=== PATIENT | male | born 1935 | race Caucasian/White ===

== ENCOUNTER 2020-08-28 10:37 | Emergency (ER) | payer MEDICARE, SELFPAY ==
[2020-08-28 10:56] VITALS: BP 128/92; PULSE 59; RESP 18; TEMP 35.8; O2SAT 99
[2020-08-28 11:20] LABS: Basophils Absolute Auto 0.1 K/mm3 (0.0-0.1); Basophils Percent Auto 0.8 % (0.2-1.2); Eosinophils Absolute Auto 0.1 K/mm3 (0-0.3); Eosinophils Percent Auto 1.3 % (0-4.4); Hematocrit 42.8 % (42.0-52.0); Hemoglobin 13.8 g/dL (14.0-18.0); Immature Granulocyte Absolute 0.02 K/mm3 (0.00-0.031); Immature Granulocyte Percent A 0.3 % (0-0.5); Lymphocytes Absolute Auto 0.86 K/mm3 (0.9-3.2); Lymphocytes Percent Auto 11.5 % (18.3-44.2); Mean Corpuscular HGB Conc 32.2 g/dl (32-36); Mean Corpuscular Hemoglobin 30.7 pg (26-34); Mean Corpuscular Volume 95.3 fl (80-100); Mean Platelet Volume 9.3 fl (7.4-10.4); Monocytes Absolute Auto 0.7 K/mm3 (0.1-0.6); Monocytes Percent Auto 8.9 % (2.6-8.5); Neutrophils Absolute Auto 5.8 K/mm3 (1.3-6.7); Neutrophils Percent Auto 77.2 % (45.5-73.1); Platelet Count Result 168 k/mm3 (150-375); Red Blood Count 4.49 M/mm3 (4.6-6.20); Red Cell Distribution Width 14.5 % (11.5-14.5); White Blood Count 7.5 K/mm3 (4.5-10.0)
[2020-08-28] MEDS: SODIUM CHLORIDE 0.9% IV 500 ML 999 ML IV CONT (11:28)
[2020-08-28 11:32] LABS: Lactic Acid Reflex 1.4 mmol/L (0.7-2.1)
[2020-08-28 11:34] LABS: Anion Gap 7 mmol/L (8-16); Blood Urea Nitrogen 19 mg/dL (9-20); CRP 2.5 mg/dL (<1.0); Carbon Dioxide 29 mmol/L (22-30); Chloride 105 mmol/L (98-107); Estimated CRCL calculation 63 ml/min; Estimated Glomerular Filt Rate > 60; Glucose 95 mg/dL (75-110); Potassium 3.9 mmol/L (3.4-5.0); Sodium 141 mmol/L (137-145)
--- NOTE | 2020-08-28 11:57 | ED.GENADULT ---
HPI - General Adult General Chief complaint: Wound/Laceration Stated complaint: urologist sent Time Seen by Provider: 08/28/20 10:44 Source: patient, old records reviewed and other (Discussed with urology) Mode of arrival: ambulatory Limitations: no limitations History of Present Illness HPI narrative: Patient is an 85-year-old male sent over from urology for evaluation of wound to the right thigh patient was seen by urology had Dougherty catheter placed due to dysuria followed up 1 month later and on his visit was found to have ulceration at the side of the leg strap for the back patient notes that he had left the tampon the entire time did not realize he had an ulceration noted discomfort initially but notes minimal discomfort at this time. Patient on arrival presents with circumferential ulceration of the right thigh with erythematous margins at some locations, drainage serosanguineous, no surrounding cellulitic changes or lymphangitic streaking Related Data Home Medications Medication Instructions Recorded Confirmed Metamucil 09/11/19 albuterol sulfate INHALATION 09/11/19 amlodipine 09/11/19 apixaban [Eliquis] mg 09/11/19 aspirin 09/11/19 atorvastatin 09/11/19 chlorthalidone 09/11/19 clonazepam 09/11/19 clonidine HCl 09/11/19 finasteride mg 09/11/19 fluticasone propionate INTRANASAL 09/11/19 furosemide 09/11/19 leflunomide mg 09/11/19 quinapril mg 09/11/19 tamsulosin mg PO 09/11/19 fluticasone furoate-vilanterol INHALATION 09/12/19 [Breo Ellipta] glucosamine sulfate [Glucosamine] 500 mg PO BID 09/12/19 Allergies Allergy/AdvReac Type Severity Reaction Status Date / Time codeine Allergy Unknown Verified 09/12/19 13:57 Review of Systems Review of Systems: All systems reviewed & are unremarkable except as noted in HPI and below PMFSH Past Medical History Medical History (Updated 08/28/20 @ 12:59 by Duncan Carter PA-C) Bronchitis Cancer Lung, prostate, bone remission Degenerative disc disease L4 and L5 Heart palpitations Hypercholesterolemia Hypertension Lung cancer Macular degeneration Musculoskeletal disorder RA, back surgeries in the lumbar area Prostate cancer 1998, took radiation treatment 2002 Rheumatoid arthritis Seasonal allergies Sepsis Sleep apnea Uses CPAP Surgical History Surgical History History of surgery on arm upper lt arm, due to lung CA moving into the bone Hx of spinal surgery Social History Social History Smoking status: Never smoker Alcohol intake: current Gender identity (if verbalized by the patient): Male Exam Narrative: Exam Narrative: GENERAL: Well-appearing, well-nourished, and in no acute distress. HEAD: Normocephalic, atraumatic. EYES: PERRLA and EOMI. ENT: Nares clear, no rhinorrhea or epistaxis. Mucous membranes moist. CHEST: Clear to auscultation. No respiratory distress. No wheezes rales or rhonchi HEART: Regular rate and rhythm. No murmur heard. Normal peripheral pulses. EXTREMITIES: Normal range of motion. No edema. SKIN: Warm, dry, no rash. Patient with superficial ulceration of the right thigh that is near circumferential with some clearing areas with erythematous margins serosanguineous drainage no lymphangitic streaking no bleeding NEURO: No focal deficits. Alert and oriented x3. PSYCH: Normal mood and affect. Const: General: no acute distress Course Course Emergency Course: Patient was evaluated by wound care nurse and myself in the emergency department evaluated patient was given wound care recommendations wound was dressed in the emergency department patient will be discharged home with follow-up with primary care primary care was contacted in regards to his patient. Patient advised to follow with primary care to facilitate wound care follow-up Vital Signs Vital signs: Vital Signs Temperatu
[2020-08-28 13:06] LABS: Add Urine Microscopic? YES; Appearance Urine Clear (Clear); Bacteria Urine Trace /hpf; Bilirubin Urine Negative (Negative); Blood Urine 1+ (Negative); Color Urine Straw (Yellow); Glucose Urine UA Negative (Negative); Ketones Urine Negative (Negative); Leukocyte Esterase Ur Trace LEU/UL (Negative); Nitrate Urine Negative (Negative); Protein Urine Negative (Negative); Specific Grav Ur 1.011 (1.001-1.035); Squamous Epithelial Cell Urine Rare /hpf (Few); Urobilinogen Urine Negative mg/dL (<2.0)
[2020-08-28 13:07] VITALS: BP 130/78; PULSE 78; RESP 20; O2SAT 99
[2020-08-28 14:25] VITALS: BP 130/70; PULSE 72; RESP 18; O2SAT 99
== END 2020-08-28 14:28 | disposition home or self-care (01) ==
PROVIDERS: Emergency Medicine Emergency Medical Services; Emergency Provider Family Medicine
DX: L97.119 Non-pressure chronic ulcer of right thigh with unspecified severity (principal); L03.115 Cellulitis of right lower limb; Z79.82 Long term (current) use of aspirin; Z79.01 Long term (current) use of anticoagulants; M51.36 Other intervertebral disc degeneration, lumbar region; E78.00 Pure hypercholesterolemia, unspecified; I10 Essential (primary) hypertension; Z85.118 Personal history of other malignant neoplasm of bronchus and lung; H35.30 Unspecified macular degeneration; Z85.46 Personal history of malignant neoplasm of prostate; M06.9 Rheumatoid arthritis, unspecified; G47.30 Sleep apnea, unspecified
CPT/HCPCS: 36415; 80048; 81001; 83605; 85025; 86140; 87070; 87075; 87076; 87077; 87186; 87205; 96365; 99284; J0690; J7040

== ENCOUNTER 2021-02-13 14:45 | Emergency (ER) | payer MEDICARE, SELFPAY ==
[2021-02-13] VITALS (18 sets, daily range): BP systolic 139–193; BP diastolic 92–115; PULSE 65–104; RESP 13–22; TEMP 36.8; O2SAT 96–99
--- NOTE | 2021-02-13 15:05 | ECG_ITS ---
Measurements Intervals [place] Rate: 83 P: [place]: 0 QRS: -33 QRSD: 88 T: 28 QT: 379 QTc: 447 Interpretive Statements ATRIAL FIBRILLATION LEFT AXIS DEVIATION BORDERLINE R WAVE PROGRESSION, ANTERIOR LEADS BORDERLINE T WAVE ABNORMALITY- INFERIOR LEADS BASELINE ARTIFACT- V3 ABNORMAL ECG Electronically Signed On 02-13-2021 19:16:02 CDT by Sergio Steel D.O.
--- NOTE | 2021-02-13 15:57 | PC.NURSE ---
after pt initially refusing blood draw twice agreeable to lab draw. pt impatient. wanting to leave.
[2021-02-13 16:01] LABS: Basophils Absolute Auto 0.1 K/mm3 (0.0-0.1); Basophils Percent Auto 0.9 % (0.2-1.2); Eosinophils Absolute Auto 0.1 K/mm3 (0-0.3); Eosinophils Percent Auto 1.3 % (0-4.4); Hematocrit 44.9 % (42.0-52.0); Hemoglobin 14.8 g/dL (14.0-18.0); Immature Granulocyte Absolute 0.02 K/mm3 (0.00-0.031); Immature Granulocyte Percent A 0.4 % (0-0.5); Lymphocytes Absolute Auto 0.94 K/mm3 (0.9-3.2); Lymphocytes Percent Auto 17.6 % (18.3-44.2); Mean Corpuscular Hemoglobin 30.8 pg (26-34); Mean Corpuscular Volume 93.5 fl (80-100); Mean Platelet Volume 9.5 fl (7.4-10.4); Monocytes Absolute Auto 0.5 K/mm3 (0.1-0.6); Monocytes Percent Auto 8.6 % (2.6-8.5); Neutrophils Absolute Auto 3.8 K/mm3 (1.3-6.7); Neutrophils Percent Auto 71.2 % (45.5-73.1); Platelet Count Result 141 k/mm3 (150-375); Red Cell Distribution Width 14.6 % (11.5-14.5); White Blood Count 5.3 K/mm3 (4.5-10.0)
--- NOTE | 2021-02-13 16:04 | PC.NURSE ---
called Bart alcantar, asked to add on Trop I Baseline [id number]
[2021-02-13 16:13] LABS: Alanine Aminotransferase 25 U/L (4-50); Albumin Level 3.7 g/dL (3.5-5.1); Alkaline Phosphatase 96 U/L (38-126); Anion Gap 6 mmol/L (8-16); Aspartate Amino Transferase 29 U/L (17-59); Bilirubin,Total 1.2 mg/dL (0.2-1.3); Blood Urea Nitrogen 15 mg/dL (9-20); Calcium 8.9 mg/dL (8.4-10.2); Carbon Dioxide 27 mmol/L (22-30); Chloride 106 mmol/L (98-107); Estimated CRCL calculation 52 ml/min; Estimated Glomerular Filt Rate > 60; Glucose 109 mg/dL (75-110); Potassium 3.6 mmol/L (3.4-5.0); Sodium 139 mmol/L (137-145)
[2021-02-13 16:18] LABS: INR 1.1; Prothrombin Time 15.2 Seconds (11.1-14.7)
--- NOTE | 2021-02-13 17:03 | PC.NURSE ---
Called Bart alcantar, asked if Trop I Baseline was going to be ran. He said he would take care of it [id number]
[2021-02-13 17:24] LABS: Troponin I < 0.012 ng/mL (0.000-0.034)
--- NOTE | 2021-02-13 17:32 | ED.SYNCOPE ---
HPI - Syncope General Chief Complaint: Syncope Stated Complaint: NEAR SYNCOPE Time Seen by Provider: 02/13/21 14:52 Source: patient Mode of arrival: EMS Limitations: no limitations History of Present Illness HPI narrative: 85-year-old with a history of RA, A. fib here with complaints of sudden onset of weakness and near passing out spell. Patient states that he was doing some paperwork and all of a sudden felt extremely weak and was about to pass out. He states he called 911 and was later brought here. He denied any chest pain or palpitations. Complains of multiple joint pains which has been ongoing for a while. MD complaint: felt faint -: minutes(s) (2 to 3 mins) Witnessed: No Context: at rest Injuries sustained associated with event: none Current symptoms: none Related Data Home Medications Medication Instructions Recorded Confirmed Metamucil 09/11/19 12/08/20 amlodipine 09/11/19 12/08/20 aspirin 09/11/19 12/08/20 atorvastatin 09/11/19 12/08/20 chlorthalidone 09/11/19 12/08/20 clonazepam 09/11/19 12/08/20 clonidine HCl 09/11/19 12/08/20 finasteride mg 09/11/19 12/08/20 fluticasone propionate INTRANASAL 09/11/19 12/08/20 furosemide 09/11/19 12/08/20 leflunomide mg 09/11/19 12/08/20 quinapril mg 09/11/19 12/08/20 fluticasone furoate-vilanterol INHALATION 09/12/19 12/08/20 [Breo Ellipta] glucosamine sulfate [Glucosamine] 500 mg PO BID 09/12/19 12/08/20 apixaban 5 mg tablet 5 mg PO BID 11/27/20 12/08/20 potassium 99 mg tablet mg PO 11/27/20 12/08/20 Allergies Allergy/AdvReac Type Severity Reaction Status Date / Time codeine Allergy Unknown Verified 12/08/20 09:25 Review of Systems Review of Systems: All systems reviewed & are unremarkable except as noted in HPI and below Constitutional: Constitutional: Reports no additional constitutional complaints Eyes: Eyes: Reports no additional eye complaints Cardiovascular: Cardiovascular: Reports no additional cardiovascular complaints Respiratory: Respiratory: Reports no additional respiratory complaints Gastrointestinal: Gastrointestinal: Reports no additional gastrointestinal complaints Musculoskeletal: Musculoskeletal: Reports no additional musculoskeletal complaints Neurologic: Reports system reviewed and no additional complaints, except as documented PMFSH Past Medical History Medical History Bronchitis Cancer Lung, prostate, bone remission Degenerative disc disease L4 and L5 Heart palpitations Hypercholesterolemia Hypertension Lung cancer Macular degeneration Musculoskeletal disorder RA, back surgeries in the lumbar area Prostate cancer 1998, took radiation treatment 2002 Rheumatoid arthritis Seasonal allergies Sepsis Sleep apnea Uses CPAP Surgical History Surgical History History of surgery on arm upper lt arm, due to lung CA moving into the bone Hx of spinal surgery Social History Social History Smoking status: Never smoker Alcohol intake: current Gender identity (if verbalized by the patient): Male Exam Narrative: Exam Narrative: GENERAL: Well-appearing, well-nourished, and in no acute distress. HEAD: Normocephalic, atraumatic. EYES: PERRLA and EOMI. ENT: Nares clear, no rhinorrhea or epistaxis. . NECK: Supple. CHEST: Clear to auscultation. No respiratory distress. HEART: Regular rate and rhythm. No murmur heard. Normal peripheral pulses. ABDOMEN: Soft, nontender, nondistended, normal active bowel sounds. EXTREMITIES: Normal range of motion has osteoarthritic changes in all the joints SKIN: Warm, dry, no rash. NEURO: No focal deficits. Alert and oriented x3. PSYCH: Normal mood and affect. Course Course Emergency Course: Patient was very restless in the ER he wanted to go home right away. However convinced him that we have to evaluate for his hear
== END 2021-02-13 17:31 | disposition home or self-care (01) ==
PROVIDERS: Emergency Provider Family Medicine; PCP Internal Medicine
DX: R55 Syncope and collapse (principal); R53.1 Weakness; I48.91 Unspecified atrial fibrillation; Z85.118 Personal history of other malignant neoplasm of bronchus and lung; E78.5 Hyperlipidemia, unspecified; I10 Essential (primary) hypertension; G47.30 Sleep apnea, unspecified
CPT/HCPCS: 36415; 80053; 84484; 85025; 85610; 93005; 99284

== ENCOUNTER 2021-04-05 10:40 | Emergency (ER) | payer MEDICARE, SELFPAY ==
--- NOTE | 2021-04-05 10:45 | ECG_ITS ---
Measurements Intervals [place] Rate: 84 P: [place]: 0 QRS: -23 QRSD: 90 T: 33 QT: 387 QTc: 459 Interpretive Statements ATRIAL FIBRILLATION VENTRICULAR PREMATURE COMPLEXES BASELINE ARTIFACT- I, II, AVR, AVL, AVF ABNORMAL ECG Electronically Signed On 04-05-2021 13:25:15 CDT by Sergio Steel D.O.
[2021-04-05 10:46] VITALS: BP 126/78; PULSE 112; RESP 16; TEMP 36.5; O2SAT 96
[2021-04-05 11:11] LABS: Basophils Absolute Auto 0.1 K/mm3 (0.0-0.1); Basophils Percent Auto 1.2 % (0.2-1.2); Eosinophils Absolute Auto 0.1 K/mm3 (0-0.3); Eosinophils Percent Auto 1.3 % (0-4.4); Hematocrit 44.9 % (42.0-52.0); Hemoglobin 14.4 g/dL (14.0-18.0); Immature Granulocyte Absolute 0.03 K/mm3 (0.00-0.031); Immature Granulocyte Percent A 0.4 % (0-0.5); Lymphocytes Absolute Auto 0.87 K/mm3 (0.9-3.2); Lymphocytes Percent Auto 12.7 % (18.3-44.2); Mean Corpuscular HGB Conc 32.1 g/dl (32-36); Mean Corpuscular Hemoglobin 31.4 pg (26-34); Mean Corpuscular Volume 97.8 fl (80-100); Mean Platelet Volume 9.1 fl (7.4-10.4); Monocytes Absolute Auto 0.5 K/mm3 (0.1-0.6); Monocytes Percent Auto 7.4 % (2.6-8.5); Neutrophils Absolute Auto 5.3 K/mm3 (1.3-6.7); Platelet Count Result 168 k/mm3 (150-375); Red Blood Count 4.59 M/mm3 (4.6-6.20); Red Cell Distribution Width 15.4 % (11.5-14.5); White Blood Count 6.9 K/mm3 (4.5-10.0)
[2021-04-05 11:21] LABS: Anion Gap 8 mmol/L (8-16); Blood Urea Nitrogen 18 mg/dL (9-20); Calcium 9.1 mg/dL (8.4-10.2); Carbon Dioxide 26 mmol/L (22-30); Chloride 107 mmol/L (98-107); Estimated CRCL calculation 49 ml/min; Estimated Glomerular Filt Rate > 60; Glucose 90 mg/dL (65-110); Potassium 4.1 mmol/L (3.4-5.0); Sodium 141 mmol/L (137-145)
[2021-04-05 11:32] VITALS: BP 131/83; PULSE 85
[2021-04-05 11:33] VITALS: BP 136/106; PULSE 94
[2021-04-05 11:34] VITALS: BP 149/114; PULSE 110
[2021-04-05 11:51] LABS: Add Urine Microscopic? YES; Appearance Urine Clear (Clear); Bacteria Urine Trace /hpf; Bilirubin Urine Negative (Negative); Blood Urine 3+ (Negative); Color Urine Yellow (Yellow); Glucose Urine UA Negative (Negative); Ketones Urine Negative (Negative); Leukocyte Esterase Ur Trace LEU/UL (Negative); Mucus Urine Rare /lpf; Nitrate Urine Negative (Negative); Protein Urine Negative (Negative); RBC Urine >75 /hpf (0-2); Specific Grav Ur 1.014 (1.001-1.035); Urobilinogen Urine Negative mg/dL (<2.0)
[2021-04-05 12:51] LABS: NT Pro B Type Natriuretic Pept 600 pg/mL (5-100); Troponin I < 0.012 ng/mL (0.000-0.034)
--- NOTE | 2021-04-05 13:17 | PC.NURSE ---
Pt refused xray a second time. made aware.
--- NOTE | 2021-04-05 13:45 | ED.DIZZY ---
HPI - Dizziness General Chief Complaint: Dizziness Stated Complaint: dizziness Time Seen by Provider: 04/05/21 12:14 Source: patient Mode of arrival: ambulatory Limitations: no limitations History of Present Illness HPI Narrative: 85-year-old male Presents to the ED complaining of having felt weak and dizzy earlier this morning He originally signed paperwork to leave without being seen which delayed his interview but then changed his mind He has A. fib and an indwelling Dougherty catheter and has been taking a sulfa for 2 days for a UTI He does not have fever chills or a cough He does not think that he had either a fast or slow heart rate There was no focal weakness or gait or speech disturbance Almost exactly the same thing with a unremarkable evaluation about a month and a half ago according to the patient, and he has seen his PCPs since that time as well Related Data Home Medications Medication Instructions Recorded Confirmed Metamucil 09/11/19 03/12/21 aspirin 09/11/19 03/12/21 atorvastatin 09/11/19 03/12/21 clonazepam 09/11/19 03/12/21 clonidine HCl 09/11/19 03/12/21 finasteride mg 09/11/19 03/12/21 fluticasone propionate INTRANASAL 09/11/19 03/12/21 furosemide 09/11/19 03/12/21 quinapril mg 09/11/19 03/12/21 glucosamine sulfate [Glucosamine] 500 mg PO BID 09/12/19 03/12/21 apixaban 5 mg tablet 5 mg PO BID 11/27/20 03/12/21 potassium 99 mg tablet mg PO 11/27/20 03/12/21 acetaminophen 500 mg tablet 1,000 mg PO BID PRN tablet 02/22/21 03/12/21 amlodipine 10 mg tablet 10 mg PO DAILY tablet 02/22/21 03/12/21 vitamin B complex 1 tablet PO DAILY 02/22/21 03/12/21 Allergies Allergy/AdvReac Type Severity Reaction Status Date / Time codeine Allergy Unknown Verified 03/30/21 08:59 Review of Systems Review of Systems: All systems reviewed & are unremarkable except as noted in HPI and below Constitutional: Constitutional: Reports no additional constitutional complaints, Denies chills, Reports fatigue, Denies fever(s), Denies headache(s) and Reports weakness Eyes: Eyes: Reports no additional eye complaints and Denies change in vision ENT: Reports dizziness, Denies headache(s) and Denies sore throat Cardiovascular: Cardiovascular: Denies chest pain, Denies rapid heart rate, Denies dyspnea and Denies slow heart rate Respiratory: Respiratory: Denies cough and Denies dyspnea Gastrointestinal: Gastrointestinal: Denies abdominal pain, Denies diarrhea, Denies nausea and Denies vomiting Genitourinary: Genitourinary: Denies dysuria and Denies urinary frequency Musculoskeletal: Musculoskeletal: Denies deformity, Reports arthralgias, Reports joint swelling and Denies numbness Integumentary/Breasts: Skin/Breast: Denies rash and Denies wounds Neurologic: Reports dizziness, Denies headache(s), Denies focal weakness and Denies numbness Psychiatric: Psychiatric: Reports no additional psychiatric complaints Endocrine: Endocrine: Reports no additional endocrine complaints Hematologic/Lymphatic: Hematologic/Lymphatic: Reports no additional hematologic/lymphatic complaints Allergic/Immunologic: Allergic/Immunologic: Reports no additional allergic/immunologic complaints PMFSH Past Medical History Medical History A-fib Bronchitis Cancer Lung, prostate, bone remission CHF (congestive heart failure) Degenerative disc disease L4 and L5 Heart palpitations Hypercholesterolemia Hypertension Lung cancer Macular degeneration Musculoskeletal disorder RA, back surgeries in the lumbar area Prostate cancer 1998, took radiation treatment 2002 Rheumatoid arthritis Seasonal allergies Sepsis Sleep apnea Uses CPAP Surgical History Surgical History History of surgery on arm upper lt arm, due to lung CA moving into the bone Hx of spinal surgery Family History Family History (Reviewed 03/30/21 @ 09:26 by Hussain
== END 2021-04-05 13:55 | disposition home or self-care (01) ==
PROVIDERS: Emergency Medicine; Emergency Provider Emergency Medicine; PCP Internal Medicine
DX: R42 Dizziness and giddiness (principal); M06.9 Rheumatoid arthritis, unspecified; I48.91 Unspecified atrial fibrillation; I50.9 Heart failure, unspecified; E78.00 Pure hypercholesterolemia, unspecified; H35.30 Unspecified macular degeneration; G47.30 Sleep apnea, unspecified; I49.3 Ventricular premature depolarization; Z79.01 Long term (current) use of anticoagulants; Z92.3 Personal history of irradiation; Z85.118 Personal history of other malignant neoplasm of bronchus and lung; Z85.46 Personal history of malignant neoplasm of prostate; Z85.830 Personal history of malignant neoplasm of bone; Z79.82 Long term (current) use of aspirin
CPT/HCPCS: 36415; 80048; 81001; 83880; 84484; 85025; 93005; 99284

== ENCOUNTER 2021-05-11 14:05 | Emergency (ER) | payer MEDICARE, SELFPAY ==
[2021-05-11 14:07] VITALS: BP 119/64; PULSE 54; RESP 16; TEMP 36.6; O2SAT 96
[2021-05-11 14:36] LABS: Add Urine Microscopic? YES; Appearance Urine Cloudy (Clear); Bacteria Urine Trace /hpf; Bilirubin Urine Negative (Negative); Blood Urine 3+ (Negative); Color Urine Yellow (Yellow); Glucose Urine UA Negative (Negative); Ketones Urine Negative (Negative); Leukocyte Esterase Ur 3+ LEU/UL (Negative); Mucus Urine Rare /lpf; Nitrate Urine Negative (Negative); Protein Urine 1+ mg/dL (Negative); RBC Urine >75 /hpf (0-2); Specific Grav Ur 1.012 (1.001-1.035); Urobilinogen Urine Negative mg/dL (<2.0); WBC Urine >75 /hpf
--- NOTE | 2021-05-11 15:01 | ED.MALEGU ---
HPI - Male Genitourinary General Chief complaint: Urogenital-Male Stated complaint: blood in catheter Time Seen by Provider: 05/11/21 14:49 Source: patient History of Present Illness HPI Narrative: 85 years old white male, lives alone, came by ambulance complaining of blood in the urine and needs to change his catheter. Which is supposed to be changed once a month. Patient denies any fever, chills, nausea, vomiting, headache, abdominal pain. History of atrial fibrillation on Eliquis. Related Data Home Medications Medication Instructions Recorded Confirmed Metamucil 09/11/19 03/12/21 aspirin 09/11/19 03/12/21 atorvastatin 09/11/19 03/12/21 clonazepam 09/11/19 03/12/21 clonidine HCl 09/11/19 03/12/21 finasteride mg 09/11/19 03/12/21 fluticasone propionate INTRANASAL 09/11/19 03/12/21 furosemide 09/11/19 03/12/21 quinapril mg 09/11/19 03/12/21 glucosamine sulfate [Glucosamine] 500 mg PO BID 09/12/19 03/12/21 apixaban 5 mg tablet 5 mg PO BID 11/27/20 03/12/21 potassium 99 mg tablet mg PO 11/27/20 03/12/21 acetaminophen 500 mg tablet 1,000 mg PO BID PRN tablet 02/22/21 03/12/21 amlodipine 10 mg tablet 10 mg PO DAILY tablet 02/22/21 03/12/21 vitamin B complex 1 tablet PO DAILY 02/22/21 03/12/21 Allergies Allergy/AdvReac Type Severity Reaction Status Date / Time codeine Allergy Unknown Verified 05/11/21 14:21 Review of Systems Review of Systems: CONSTITUTIONAL: Denies fever, chills, or sweats. EYES: Denies visual changes, redness, or discharge. ENT: Denies rhinorrhea, congestion, sore throat, or otalgia. CARDIOVASCULAR: Denies chest pain, palpitations, or edema. RESPIRATORY: Denies cough or dyspnea. GASTROINTESTINAL: Denies abdominal pain, nausea, vomiting, or diarrhea. GENITOURINARY: Denies dysuria or hematuria. SKIN: Denies rash or itching. MUSCULOSKELETAL: Denies back pain, joint pain, or myalgia. NEUROLOGIC: Denies headache, numbness, or weakness. PSYCHIATRIC: Denies anxiety or depression. [facility] Past Medical History Medical History A-fib Bronchitis Cancer Lung, prostate, bone remission CHF (congestive heart failure) Degenerative disc disease L4 and L5 Heart palpitations Hypercholesterolemia Hypertension Lung cancer Macular degeneration Musculoskeletal disorder RA, back surgeries in the lumbar area Prostate cancer 1998, took radiation treatment 2002 Rheumatoid arthritis (~1999) Seasonal allergies Sepsis Sleep apnea Uses CPAP Surgical History Surgical History History of surgery on arm upper lt arm, due to lung CA moving into the bone Hx of spinal surgery Family History Family History Father Heart problem Mother Cancer Social History Social History Smoking status: Never smoker Alcohol intake: current Alcohol use details: Drinks a little ETOH Gender identity (if verbalized by the patient): Male Exam Narrative: General appearance: Well-developed, well-nourished Skin: Normal color Chest and respiratory: Airway patent, no respiratory distress, no accessory muscle use Heart: Regular rate/rhythm Abdomen: Soft, nontender, no organomegaly, quiet bowel sounds Neurologic: Alert and oriented ?3, Course Course Emergency Course: Stable Reevaluation(s) Reevaluation #1: Patient declined to be hospitalized and would like to go home. Patient is planning to stop Plaquenil in case of having a prescription of Cipro. Patient is telling me that Plaquenil does not work and will be okay to stop. D
[2021-05-11 15:41] LABS: Basophils Absolute Auto 0.1 K/mm3 (0.0-0.1); Basophils Percent Auto 0.9 % (0.2-1.2); Eosinophils Absolute Auto 0.1 K/mm3 (0-0.3); Eosinophils Percent Auto 1.4 % (0-4.4); Hematocrit 40.4 % (42.0-52.0); Hemoglobin 13.2 g/dL (14.0-18.0); Immature Granulocyte Absolute 0.04 K/mm3 (0.00-0.031); Immature Granulocyte Percent A 0.5 % (0-0.5); Lymphocytes Absolute Auto 0.99 K/mm3 (0.9-3.2); Lymphocytes Percent Auto 12.7 % (18.3-44.2); Mean Corpuscular HGB Conc 32.7 g/dl (32-36); Mean Corpuscular Hemoglobin 32.4 pg (26-34); Mean Platelet Volume 9.6 fl (7.4-10.4); Monocytes Absolute Auto 0.7 K/mm3 (0.1-0.6); Monocytes Percent Auto 8.5 % (2.6-8.5); Neutrophils Absolute Auto 5.9 K/mm3 (1.3-6.7); Platelet Count Result 155 k/mm3 (150-375); Red Blood Count 4.08 M/mm3 (4.6-6.20); Red Cell Distribution Width 14.8 % (11.5-14.5); White Blood Count 7.8 K/mm3 (4.5-10.0)
[2021-05-11 15:52] LABS: Anion Gap 6 mmol/L (8-16); Blood Urea Nitrogen 26 mg/dL (9-20); Calcium 8.8 mg/dL (8.4-10.2); Carbon Dioxide 28 mmol/L (22-30); Chloride 102 mmol/L (98-107); Estimated CRCL calculation 56 ml/min; Estimated Glomerular Filt Rate > 60; Glucose 105 mg/dL (65-110); Potassium 3.5 mmol/L (3.4-5.0); Sodium 136 mmol/L (137-145)
--- NOTE | 2021-05-11 18:00 | PC.NURSE ---
urinary cath plug to end of robertson per pt. pt continues to refuse use of leg bag.
[2021-05-11 18:05] VITALS: BP 122/73; PULSE 58; RESP 18; O2SAT 96
== END 2021-05-11 18:05 | disposition home or self-care (01) ==
PROVIDERS: Emergency Medicine; Emergency Provider Emergency Medicine; PCP Internal Medicine
DX: N39.0 Urinary tract infection, site not specified (principal); R31.9 Hematuria, unspecified; I48.91 Unspecified atrial fibrillation; I50.9 Heart failure, unspecified; I11.0 Hypertensive heart disease with heart failure; E78.00 Pure hypercholesterolemia, unspecified; H35.30 Unspecified macular degeneration; M06.9 Rheumatoid arthritis, unspecified; G47.30 Sleep apnea, unspecified; M51.36 Other intervertebral disc degeneration, lumbar region; Z85.46 Personal history of malignant neoplasm of prostate; Z85.118 Personal history of other malignant neoplasm of bronchus and lung; Z85.830 Personal history of malignant neoplasm of bone; Z79.01 Long term (current) use of anticoagulants; Z79.82 Long term (current) use of aspirin
CPT/HCPCS: 36415; 80048; 81001; 85025; 87077; 87086; 87088; 87186; 96365; 99284; J0696

== ENCOUNTER 2021-05-15 11:08 | Emergency (ER) | payer MEDICARE, SELFPAY ==
[2021-05-15] VITALS (8 sets, daily range): BP systolic 102–144; BP diastolic 57–85; PULSE 67–79; RESP 16–19; TEMP 36.8; O2SAT 96–99
--- NOTE | ~2021-05-15 | XR_ITS ---
EXAMINATION: XR lumbar spine 2-3V DATE: 05/15/2021 12:45 INDICATION: Low back pain post recurring falls. TECHNIQUE: Anteroposterior and lateral views of the lumbar spine, and cone-down lateral view of the l umbosacral junction were obtained. COMPARISON: MRI dated 04/23/2006 FINDINGS: No significant change in a mild mid lumbar dextroscoliosis with chronic compression fractures versus degenerative endplate remodeling resulting in mild left-sided vertebral body height loss at both L2 a nd L3. Also without significant interval changes mild grade 1 retrolisthesis L3 on L4, L4 on L5 and L 5 on S1. Multilevel severe disc height loss with Modic type III sclerotic endplate changes from L1-L2 through L5-S1. There is a subtle linear lucency extending across the left inferior corner of the L1 vertebral body suspicious for fracture. No other lesions suspicious for acute fracture identified. Mo derate to severe joint space narrowing seen at the profiled portions of the bilateral hip joints. Mod erate bilateral sacroiliac osteoarthritis. Extensive scattered atherosclerotic calcification along th e abdominal aorta and multiple vessels in the pelvis. IMPRESSION: 1. Linear lucency projecting across the left inferior corner of the L1 vertebral body suspicious for nondisplaced fracture. Would consider CT for more definitive determination 2. Severe lumbar spondylosis. Reviewed, dictated and finalized at location A. IMPRESSION: 1. Linear lucency projecting across the left inferior corner of the L1 vertebra l body suspicious for nondisplaced fracture. Would consider CT for more definit blaine determination 2. Severe lumbar spondylosis.
--- NOTE | ~2021-05-15 | CT_ITS ---
EXAMINATION: CT brain wo con, CT cervical spine wo con EXAM DATE: 05/15/2021 11:46 INDICATION: Fall, head injury. TECHNIQUE: Spiral CT of the head was performed without contrast. Axial, coronal and sagittal images were reviewed. Spiral CT of the cervical spine was performed without contrast. Axial images were rev iewed. Coronal and sagittal reformatted images were also reviewed. The dose-length product (DLP) fo r this examination was 681.00 (accession [id number]), 468.27 (accession [id number]) mGy-cm. The exposure was tailored according to patient size, and iterative reconstruction (ASIR) was used as additional dose reduction technique. Comparison is made to prior examination from 09/12/2019. FINDINGS: HEAD CT: There is no acute intraparenchymal hemorrhage. No evidence of intraparenchymal brain mass l esion. No evidence of acute infarction. There is moderate periventricular and subcortical hypodensit y, nonspecific but probably related to small vessel ischemic disease. There is moderate prominence of the sulci and ventricles related to cerebral atrophy. There is no mass effect or midline shift. There is no obstructive hydrocephalus suspected. There are no extra-axial collections. There are n o acute calvarial fractures. Patient has had right-sided ocular lens surgery. Soft tissue is unrema rkable. The visualized sinuses and mastoid air cells are well aerated. CERVICAL CT: There is no evidence of acute cervical fracture. The odontoid process is intact. Pre- dens space is normal. Prevertebral soft tissue is normal. There are no soft tissue abnormalities id entified. There is no disc space widening or traumatic vertebral body subluxation suspected. Advanc ed cervical spondylosis. A detailed level by level evaluation of spondylosis can be added as addendu m if requested. IMPRESSION: 1. No acute intracranial findings or cervical fracture. 2. Moderate intracranial age related findings. 3. Advanced cervical spondylosis. Reviewed, dictated and finalized at location B. IMPRESSION: 1. No acute intracranial findings or cervical fracture. 2. Moderate intracranial age related findings. 3. Advanced cervical spondylosis.
--- NOTE | ~2021-05-15 | CT_ITS ---
EXAMINATION: CT lumbar spine wo con DATE: 05/15/2021 19:36 INDICATION: Low back pain. TECHNIQUE: Computed tomography (CT) of the lumbar spine was performed without intravenous contrast. A utomated exposure control and iterative reconstruction technique were employed. The dose-length produ ct was 1071.01 mGy-cm. COMPARISON: Lumbar spine radiographs 05/15/2021, MRI 05/15/2021 FINDINGS: There are hemorrhagic cysts in left kidney measuring up to 1.7 cm. There is a 3.0 cm simple cyst in left kidney. There is 21 degrees dextroscoliosis of lumbar spine. There is 3 mm retrolisthes is of L1 on L2, L2 on L3, L3 on L4, and L4 onL5. There is severely decreased disc height from T11-T12 through L5-S1 with chronic height loss of L1-L5 vertebral bodies and endplate remodeling. The follow ing disc levels are specifically discussed: L1-L2: The disc is bulging. There is severe bilateral facet joint osteoarthritis. There is moderate b ilateral neural foraminal stenosis. There is moderate central canal stenosis. L2-L3: The disc is bulging. There is severe bilateral facet joint osteoarthritis. There is moderate b ilateral neural foraminal stenosis. There is mild central canal stenosis. L3-L4: The disc is bulging. There is severe bilateral facet joint osteoarthritis. There is moderate b ilateral neural foraminal stenosis. There is mild central canal stenosis. L4-L5: The disc is bulging. There is severe bilateral facet joint osteoarthritis. There is moderate b ilateral neural foraminal stenosis. There is mild central canal stenosis. L5-S1: The disc is bulging. There is severe bilateral facet joint osteoarthritis. There is moderate b ilateral neural foraminal stenosis. There is mild central canal stenosis. IMPRESSION: 1. No acute fracture. 2. Severe lumbar spondylosis. 3. Lumbar dextroscoliosis. Reviewed, dictated and finalized at location A.
--- NOTE | ~2021-05-15 | XR_ITS ---
EXAMINATION: XR chest 2V DATE: 05/15/2021 11:35 INDICATION: Weakness TECHNIQUE: frontal view of the chest was obtained. COMPARISON: Chest radiograph dated 09/12/[address] dated 05/25/2008 FINDINGS: Volume loss in the right hemithorax with crowding of the ribs and slight rightward shift of the heart and mediastinum. Unchanged airspace opacity at the posterior right midlung zone corresponding to chr onically collapsed right upper lobe as seen on prior CT and likely related to reported history of walker or lung cancer with radiation treatment. Remainder of the lungs are clear. No pulmonary edema, pleura l effusion or pneumothorax. Heart size is normal accounting for AP technique. Atherosclerotic aorta. Mild to moderate degenerative skeletal changes in the spine and at both shoulders. IMPRESSION: 1. Volume loss in the right hemithorax with stable appearance of a chronic opacity in the posterior r ight midlung zone which appears to correspond to chronic right upper lobar collapse likely related to reported history of prior lung cancer and radiation treatment. Reviewed, dictated and finalized at location A. IMPRESSION: 1. Volume loss in the right hemithorax with stable appearance of a chronic opac ity in the posterior right midlung zone which appears to correspond to chronic right upper lobar collapse likely related to reported history of prior lung can cer and radiation treatment.
--- NOTE | 2021-05-15 11:11 | ECG_ITS ---
Measurements Intervals [place] Rate: 73 P: [place]: 0 QRS: 22 QRSD: 90 T: 73 QT: 382 QTc: 421 Interpretive Statements ATRIAL FIBRILLATION BASELINE ARTIFACT- I, II, III, AVR, AVF, V1, V3-V6 ABNORMAL ECG Electronically Signed On 05-15-2021 11:25:27 CDT by Sergio Steel D.O.
--- NOTE | 2021-05-15 11:29 | ED.GENADULT ---
HPI - General Adult General Chief complaint: Weakness Stated complaint: FALL/WEAKNESS Time Seen by Provider: 05/15/21 11:11 Source: patient History of Present Illness HPI narrative: Patient is a 85 y/o male complaining of severe generalized weakness for 3-4 months. There is no known alleviating or exacerbating factor. He states that he fell twice today and could not get up. He pushed the life line button and was brought here to ED. He states that he did not hit his head and he did not lose consciousness. He has no neck pain, chest pain or abdominal pain. He has chronic back pain due to spinal stenosis and it has been present for perhaps 10 years. He had multiple back surgeries in the past. He states that he normally ambulates with a walker, but he his not able to get up after the fall. He lives by himself and he has a helper that helps with his daily activity. Related Data Home Medications Medication Instructions Recorded Confirmed Metamucil 09/11/19 03/12/21 aspirin 09/11/19 03/12/21 atorvastatin 09/11/19 03/12/21 clonazepam 09/11/19 03/12/21 clonidine HCl 09/11/19 03/12/21 finasteride mg 09/11/19 03/12/21 fluticasone propionate INTRANASAL 09/11/19 03/12/21 furosemide 09/11/19 03/12/21 quinapril mg 09/11/19 03/12/21 glucosamine sulfate [Glucosamine] 500 mg PO BID 09/12/19 03/12/21 apixaban 5 mg tablet 5 mg PO BID 11/27/20 03/12/21 potassium 99 mg tablet mg PO 11/27/20 03/12/21 acetaminophen 500 mg tablet 1,000 mg PO BID PRN tablet 02/22/21 03/12/21 amlodipine 10 mg tablet 10 mg PO DAILY tablet 02/22/21 03/12/21 vitamin B complex 1 tablet PO DAILY 02/22/21 03/12/21 Allergies Allergy/AdvReac Type Severity Reaction Status Date / Time codeine Allergy Unknown Verified 05/15/21 11:22 Review of Systems Constitutional: Constitutional: Denies chills, Denies fever(s), Denies headache(s) and Reports weakness Eyes: Eyes: Denies blurry vision ENT: Denies headache(s) and Denies neck pain Cardiovascular: Cardiovascular: Denies chest pain and Denies dyspnea Respiratory: Respiratory: Denies cough and Denies dyspnea Gastrointestinal: Gastrointestinal: Denies abdominal pain, Denies diarrhea, Denies nausea and Denies vomiting Genitourinary: Genitourinary: Denies hematuria and Denies dysuria Musculoskeletal: Musculoskeletal: Reports back pain and Denies neck pain Neurologic: Denies headache(s) and Reports weakness PMFSH Past Medical History Medical History A-fib Bronchitis Cancer Lung, prostate, bone remission CHF (congestive heart failure) Degenerative disc disease L4 and L5 Heart palpitations Hypercholesterolemia Hypertension Lung cancer Macular degeneration Musculoskeletal disorder RA, back surgeries in the lumbar area Prostate cancer 1998, took radiation treatment 2002 Rheumatoid arthritis (~1999) Seasonal allergies Sepsis Sleep apnea Uses CPAP Surgical History Surgical History History of surgery on arm upper lt arm, due to lung CA moving into the bone Hx of spinal surgery Family History Family History Father Heart problem Mother Cancer Social History Social History Smoking status: Never smoker Alcohol intake: current Alcohol use details: Drinks a little ETOH Gender identity (if verbalized by the patient): Male Exam Const: General: no acute distress and well developed Orientation/consciousness: oriented to person, oriented to place, oriented to time and patient oriented x3 HENMT: Head: normocephalic Ears: external ears normal General nose exam: Normal external nose present Eyes: General: appearance normal, both eyes and all related structures Conjunctivae: conjunctivae normal Neck: Neck: normal visual inspection and full ROM Chest: Chest palpation & inspection:
[2021-05-15 11:43] LABS: Basophils Absolute Auto 0.1 K/mm3 (0.0-0.1); Basophils Percent Auto 0.9 % (0.2-1.2); Eosinophils Absolute Auto 0.1 K/mm3 (0-0.3); Eosinophils Percent Auto 0.8 % (0-4.4); Hematocrit 47.3 % (42.0-52.0); Immature Granulocyte Absolute 0.03 K/mm3 (0.00-0.031); Immature Granulocyte Percent A 0.4 % (0-0.5); Lymphocytes Absolute Auto 0.81 K/mm3 (0.9-3.2); Lymphocytes Percent Auto 10.8 % (18.3-44.2); Mean Corpuscular HGB Conc 31.7 g/dl (32-36); Mean Corpuscular Volume 100.9 fl (80-100); Mean Platelet Volume 9.9 fl (7.4-10.4); Monocytes Absolute Auto 0.6 K/mm3 (0.1-0.6); Monocytes Percent Auto 8.3 % (2.6-8.5); Neutrophils Absolute Auto 5.9 K/mm3 (1.3-6.7); Neutrophils Percent Auto 78.8 % (45.5-73.1); Platelet Count Result 162 k/mm3 (150-375); Red Blood Count 4.69 M/mm3 (4.6-6.20); Red Cell Distribution Width 14.8 % (11.5-14.5); White Blood Count 7.5 K/mm3 (4.5-10.0)
[2021-05-15 11:53] LABS: Alanine Aminotransferase 32 U/L (4-50); Albumin Level 3.9 g/dL (3.5-5.1); Alkaline Phosphatase 115 U/L (38-126); Anion Gap 6 mmol/L (8-16); Aspartate Amino Transferase 36 U/L (17-59); Blood Urea Nitrogen 29 mg/dL (9-20); Calcium 9.2 mg/dL (8.4-10.2); Carbon Dioxide 29 mmol/L (22-30); Chloride 102 mmol/L (98-107); Estimated CRCL calculation 61 ml/min; Estimated Glomerular Filt Rate > 60; Glucose 97 mg/dL (65-110); Potassium 3.7 mmol/L (3.4-5.0); Sodium 137 mmol/L (137-145)
[2021-05-15 12:02] LABS: INR 1.1; Partial Thromboplastin Time 31.5 SECONDS (22.3-36.8); Prothrombin Time 13.7 Seconds (11.1-14.7)
[2021-05-15 12:30] LABS: Troponin I < 0.012 ng/mL (0.000-0.034)
--- NOTE | 2021-05-15 12:35 | PCCCNOTE ---
Spoke with pt per his request for help getting to rehab. Pt states he has fallen twice today and was unable to get himself up. Pt requesting to go to [place] for rehab. Explained to pt he would need PT/OT eval so that we can send request to [facility] for authorization. Pt is agreeable. Pt unable to care for himself at home. Called Irene at [facility] and faxed ED MD notes and face sheet to her..
[2021-05-15 13:05] LABS: Add Urine Microscopic? YES; Appearance Urine Clear (Clear); Bilirubin Urine Negative (Negative); Blood Urine Negative (Negative); Color Urine Straw (Yellow); Glucose Urine UA Negative (Negative); Ketones Urine Negative (Negative); Leukocyte Esterase Ur 1+ LEU/UL (Negative); Mucus Urine Rare /lpf; Nitrate Urine Negative (Negative); Protein Urine Negative (Negative); Specific Grav Ur 1.011 (1.001-1.035); Urobilinogen Urine Negative mg/dL (<2.0)
--- NOTE | 2021-05-15 15:03 | PCCCNOTE ---
[facility] waiting PT/OT eval. and [facility] authorization prior to accepting pt. Irene feels if [facility] auth received that they will accept Edu.
--- NOTE | 2021-05-15 15:47 | PCCCNOTE ---
Faxed face sheet, ER note and PT queenieal to [facility]. Requesting authorization for SNF at [place]. Faxed PT eval to [facility].
[2021-05-15 15:57] LABS: Troponin I < 0.012 ng/mL (0.000-0.034)
--- NOTE | 2021-05-15 16:58 | PCCCNOTE ---
Pt reports he has both Pfizer immunizations in January 2021
--- NOTE | 2021-05-15 17:26 | PCCCNOTE ---
Pending Ref# [id number] obtained from [employer]. [facility] to call and let Care Coordination know if auth is approved.
[2021-05-15 17:40] LABS: Troponin I < 0.012 ng/mL (0.000-0.034)
--- NOTE | 2021-05-15 19:10 | PCCCNOTE ---
[facility] auth rec'd for pt to go to [place]. Auth ID: [id number], under Teresita Canada at [facility]. Jinny rowell for 3 days starting on 05/15/2021. NDR 05/17/2021. Notified Irene at [facility] of same.
--- NOTE | 2021-05-15 19:19 | PC.NURSE ---
Rex Ibrahim called to give report at this time, Claudia ELIZABETH. RN has no questions or concerns at this time. Discharge packet for placement prepared for patient.
--- NOTE | 2021-05-15 20:03 | PC.NURSE ---
called [facility] to request transport. ETA 2100 called [facility] to request transport. declined- there is no transfer truck tonight.
--- NOTE | 2021-05-15 22:18 | PC.NURSE ---
[facility] here.
== END 2021-05-15 22:21 ==
PROVIDERS: Emergency Provider Emergency Medicine; PCP Internal Medicine
DX: R53.1 Weakness (principal); G89.29 Other chronic pain; M54.9 Dorsalgia, unspecified; I48.91 Unspecified atrial fibrillation; I50.9 Heart failure, unspecified; E78.00 Pure hypercholesterolemia, unspecified; I11.0 Hypertensive heart disease with heart failure; M06.9 Rheumatoid arthritis, unspecified; G47.30 Sleep apnea, unspecified; Z87.09 Personal history of other diseases of the respiratory system; Z85.46 Personal history of malignant neoplasm of prostate; Z86.19 Personal history of other infectious and parasitic diseases; Z92.3 Personal history of irradiation
CPT/HCPCS: 36415; 70450; 71046; 72100; 72125; 72131; 80053; 81001; 84484; 85025; 85610; 85730; 93005; 97161; 97166; 99284

== ENCOUNTER 2021-08-25 13:54 | Outpatient (NON) | payer MEDICARE, SELFPAY | END 2021-08-25 13:55 | disposition home or self-care (01) | LOC: HOME HLTH 13:57 | PROVIDERS: PCP Internal Medicine; Visit Provider Urology | DX: G89.29 Other chronic pain (principal); M51.36 Other intervertebral disc degeneration, lumbar region; R33.9 Retention of urine, unspecified; Z46.6 Encounter for fitting and adjustment of urinary device; N39.0 Urinary tract infection, site not specified | CPT/HCPCS: 87077; 87086; 87186 ==

== ENCOUNTER 2021-10-04 14:30 | Outpatient (NON) | payer MEDICARE, SELFPAY | END 2021-10-04 14:31 | disposition home or self-care (01) | PROVIDERS: PCP Internal Medicine; Visit Provider Urology | DX: R31.9 Hematuria, unspecified (principal); R33.9 Retention of urine, unspecified; Z46.6 Encounter for fitting and adjustment of urinary device; M51.36 Other intervertebral disc degeneration, lumbar region; G89.29 Other chronic pain | CPT/HCPCS: 87077; 87086; 87186 ==

== ENCOUNTER 2021-11-13 10:41 | Outpatient (NON) | payer MEDICARE, SELFPAY | END 2021-11-13 10:42 | disposition home or self-care (01) | PROVIDERS: PCP Internal Medicine; Visit Provider Nurse Practitioner Adult Health | DX: R82.90 Unspecified abnormal findings in urine (principal) | CPT/HCPCS: 87077; 87086; 87186 ==

== ENCOUNTER 2021-11-30 16:01 | Outpatient (NON) | payer MEDICARE, SELFPAY | END 2021-11-30 16:02 | disposition home or self-care (01) | LOC: HOME HLTH 16:03 | PROVIDERS: PCP Internal Medicine; Visit Provider Urology | DX: M51.36 Other intervertebral disc degeneration, lumbar region (principal); R33.9 Retention of urine, unspecified; Z46.6 Encounter for fitting and adjustment of urinary device | CPT/HCPCS: 87077; 87086; 87186 ==

== ENCOUNTER 2022-01-15 12:01 | Outpatient (NON) | payer MEDICARE, SELFPAY ==
[2022-01-15 12:21] LABS: Appearance Urine Cloudy (Clear); Bilirubin Urine Negative (Negative); Blood Urine 2+ (Negative); Color Urine Yellow (Yellow); Glucose Urine UA Negative (Negative); Ketones Urine Negative (Negative); Leukocyte Esterase Ur 2+ LEU/UL (NEGATIVE); Nitrate Urine Positive (Negative); Protein Urine 1+ mg/dL (Negative); Urobilinogen Urine 0.2 mg/dL (<2.0); pH Urine 5.5 (5.0-9.0)
[2022-01-15 12:25] LABS: Bacteria Urine 3+ /hpf; Calcium Oxalate Crystals Urine Present /hpf; Mucus Urine Few /lpf; RBC Urine 51-75 /hpf (0-2); WBC Clumps Urine Present /HPF; WBC Urine >75 /hpf (0-3)
[2022-01-15 12:46] LABS: Add Urine Microscopic? YES
== END 2022-01-15 12:02 | disposition home or self-care (01) ==
PROVIDERS: PCP Internal Medicine; Visit Provider Urology
DX: N39.0 Urinary tract infection, site not specified (principal); R33.9 Retention of urine, unspecified; M51.36 Other intervertebral disc degeneration, lumbar region; G89.29 Other chronic pain; Z46.6 Encounter for fitting and adjustment of urinary device
CPT/HCPCS: 81001; 87086; 87088

== ENCOUNTER 2022-06-28 07:48 | Inpatient (IN) | payer MEDICARE, SELFPAY ==
[2022-06-28] VITALS (21 sets, daily range): BP systolic 88–113; BP diastolic 58–77; PULSE 64–97; RESP 14–28; TEMP 35.6–36.8; O2SAT 84–100
--- NOTE | ~2022-06-28 | CT_ITS ---
EXAMINATION: CT brain wo con DATE: 06/28/2022 09:00 INDICATION: Weakness. TECHNIQUE: Computed tomography (CT) of the head was performed without intravenous contrast. The dose- length product was 605.33 mGy-cm. Automated exposure control and iterative reconstruction technique w ere employed. COMPARISON: CT dated 05/15/2021 FINDINGS: Generalized atrophy. There are scattered moderate periventricular and subcortical white mat ter changes, most likely related to small vessel ischemic disease (microangiopathy). No ventriculomeg elvia or midline shift. Basilar cisterns are patent. No acute intracranial hemorrhage, infarction, mass or mass effect. There is intracranial atherosclerosis. There is mild mucosal thickening of the ethmo id sinuses. Mastoids are pneumatized. No depressed skull fractures. IMPRESSION: 1. No acute intracranial abnormality. 2: Chronic age-related findings. Reviewed, dictated and finalized at location A.
--- NOTE | ~2022-06-28 | XR_ITS ---
EXAMINATION: XR barium swallow modified DATE: 06/29/2022 14:21 INDICATION: Aspiration. TECHNIQUE: The patient was given barium-containing material of multiple consistencies to swallow by t he speech pathologist while I performed fluoroscopy. Fluoroscopy exposure time was 2.0 minutes. The n umber of fluoroscopy images saved to the PACS was 1. Dose-area product was 1.821 Gy-cm^2. FINDINGS: There is reduced laryngeal elevation, reduced tongue base retraction, and laryngeal penetration. IMPRESSION: 1. Laryngeal penetration. 2. Please refer to the speech therapy report for recommendations. Reviewed, dictated and finalized at location A.
--- NOTE | ~2022-06-28 | XR_ITS ---
EXAMINATION: XR chest 1V portable DATE: 07/01/2022 05:44 INDICATION: Hypoxia. Presumed aspiration pneumonia. TECHNIQUE: frontal view of the chest was obtained. COMPARISON: Chest radiograph and CT studies dated 06/28/2022 and 05/25/2008 FINDINGS: Cardiomegaly. Volume loss in the right hemithorax with V-shaped linear opacity projecting over the right hilum darwin esponding to chronic atelectasis/scarring on prior CT. Mild streaky opacities in the bilateral lower lung zones. Small left pleural effusion. No pneumothorax. Retained oral contrast material in the visu alized transverse colon. Moderate thoracic spondylosis. IMPRESSION: 1. Streaky opacities at the bilateral lung bases, most likely atelectasis although differential inclu meet aspiration or pneumonia. 2. Small left pleural effusion. 3. Cardiomegaly. Reviewed, dictated and finalized at location A. IMPRESSION: 1. Streaky opacities at the bilateral lung bases, most likely atelectasis altho ugh differential includes aspiration or pneumonia. 2. Small left pleural effusion. 3. Cardiomegaly.
--- NOTE | ~2022-06-28 | CT_ITS ---
EXAMINATION: CT abdomen pelvis wo/w con DATE: 06/28/2022 18:13 INDICATION: Hematuria TECHNIQUE: Computed tomography (CT) of the abdomen and pelvis was performed without intravenous contr ast. CT of the abdomen and pelvis was then performed with a total of 130 mL Omnipaque 350 intravenous contrast using a double-bolus technique for simultaneous opacification of the renal parenchyma and r enal collecting system. The dose-length product (DLP) was 2821.70 mGy-cm. Automated exposure control and iterative reconstruction technique were employed. COMPARISON: None FINDINGS: There are small pleural effusions. Cardiomegaly is noted. There is calcified coronary arter y atherosclerosis. A small pericardial effusion is noted. Subepicardial fat deposition in the heart i s consistent with prior myocardial infarction. Punctate calcifications in an otherwise normal spleen likely represent healed granulomatous disease. The liver, pancreas, and adrenal glands are normal. A stone is present in the nondistended gallbladder. There are hemorrhagic cysts of both kidneys. Simple cysts of the kidneys measure up to 4.4 cm on the right. There are nonobstructing stones of the right kidney lower pole measuring up to 3 mm. There is a 3 mm stone of the left kidney. Small stones are n oted in the urinary bladder which is decompressed by Dougherty catheter. There are multiple soft tissue d ensity filling defects in the right ureter. There is calcified atherosclerosis of the aorta and many of the other arteries. No pathologically enlarged abdominal or pelvic lymph nodes are identified. The appendix is normal. No pathologically enlarged abdominal or pelvic lymph nodes are identified. There is no free intraperitoneal gas or evidence of bowel obstruction. There is severe osteoarthritis of t he hips. Severe lumbar spondylosis is noted. IMPRESSION: 1. Small stones in the urinary bladder. 2. Multiple small filling defects in the right ureter which could reflect hematoma versus urothelial lesions. 3. Cardiomegaly with small pleural effusions. 4. Bilateral nephrolithiasis. Reviewed, dictated and finalized at location F. IMPRESSION: 1. Small stones in the urinary bladder. 2. Multiple small filling defects in the right ureter which could reflect hemat rocky versus urothelial lesions. 3. Cardiomegaly with small pleural effusions. 4. Bilateral nephrolithiasis.
--- NOTE | ~2022-06-28 | XR_ITS ---
EXAMINATION: XR abdomen/kub 1V INDICATION: Hematuria TECHNIQUE: Supine views of the abdomen were obtained on 2 radiographs. COMPARISON: CT from today FINDINGS: There are phleboliths of the pelvis. Nephrolithiasis described on today's CT scan is not de finitely identified. There is severe lumbar spondylosis. 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 The bowel gas pattern is normal. IMPRESSION: 1. No radiographic correlate for the patient's symptoms. Reviewed, dictated and finalized at location F.
--- NOTE | ~2022-06-28 | XR_ITS ---
EXAMINATION: XR chest 1V portable DATE: 06/28/2022 08:51 INDICATION: Weakness. TECHNIQUE: A single frontal view of the chest was obtained. COMPARISON: Chest 2 views 05/15/2021, chest CT 05/25/2008 FINDINGS: There is mild atelectasis at left lung base. There are chronic airspace opacities in right perihilar region. No pleural effusion or pneumothorax. Cardiomegaly is noted. IMPRESSION: 1. Mild atelectasis at left lung base. 2. 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 3. Cardiomegaly. Reviewed, dictated and finalized at location A. IMPRESSION: 1. Mild atelectasis at left lung base. 2. Chronic airspace opacities in right perihilar region, consistent with radiat ion fibrosis. 3. Cardiomegaly.
--- NOTE | 2022-06-28 07:55 | ECG_ITS ---
Measurements Intervals [place] Rate: 96 P: ME: 0 QRS: -11 QRSD: 92 T: 37 QT: 340 QTc: 430 Interpretive Statements ATRIAL FIBRILLATION WITH PVCS OCCURRING IN A PATTERN OF BIGEMINY LOW QRS VOLTAGE IN EXTREMITY LEADS [QRS DEFLECTION < 0.5 mV IN LIMB LEADS] ABNORMAL RHYTHM ECG COMPARED TO ECG 05/15/2021 11:20:35 PVCS ARE SEEN Electronically Signed On 06-28-2022 15:36:52 CDT by Amrit Contreras M.D.
--- NOTE | 2022-06-28 08:06 | ED.GENADULT ---
HPI - General Adult General Chief complaint: Weakness Stated complaint: gen weakness and blood in cath Time Seen by Provider: 06/28/22 07:51 History of Present Illness HPI narrative: 86-year-old male with history of paroxysmal atrial fibrillation, CHF, lung cancer and prostate cancer presenting to the emergency department for evaluation of worsening generalized weakness. [facility] the [facility] they were concerned that patient was having increased hematuria along with increased generalized weakness. Patient does complain of some lower abdominal pain. Patient does take Eliquis. Related Data Home Medications Medication Instructions Recorded Confirmed Metamucil 09/11/19 12/20/21 aspirin 81 mg chewable tablet 81 mg PO DAILY 09/11/19 06/28/22 atorvastatin 40 mg tablet 40 mg PO HS 09/11/19 06/28/22 clonidine HCl 0.1 mg tablet 0.1 mg PO BID 09/11/19 06/28/22 finasteride 5 mg tablet mg 09/11/19 12/20/21 fluticasone propionate 50 intranasal 09/11/19 12/20/21 mcg/actuation nasal spray,suspension furosemide 40 mg tablet 09/11/19 12/20/21 quinapril 40 mg tablet mg 09/11/19 12/20/21 glucosamine sulfate 500 mg tablet 500 mg PO BID 09/12/19 12/20/21 (Glucosamine) apixaban 5 mg tablet (Eliquis) 5 mg PO BID 11/27/20 12/20/21 potassium 99 mg tablet mg PO 11/27/20 12/20/21 acetaminophen 500 mg tablet 1,000 mg PO Q8H PRN pain or fever 02/22/21 06/28/22 (Tylenol Extra Strength) amlodipine 10 mg tablet 10 mg PO DAILY 02/22/21 06/28/22 vitamin B complex 1 tablet PO DAILY 02/22/21 12/20/21 docusate sodium 100 mg tablet 100 mg PO BID 06/28/22 06/28/22 Allergies Allergy/AdvReac Type Severity Reaction Status Date / Time codeine Allergy Unknown Verified 06/28/22 12:45 Review of Systems Review of Systems: CONSTITUTIONAL: Denies fever, chills, or sweats. EYES: Denies visual changes, redness, or discharge. ENT: Denies rhinorrhea, congestion, sore throat, or otalgia. CARDIOVASCULAR: Denies chest pain, palpitations, or edema. RESPIRATORY: Denies cough or dyspnea. GASTROINTESTINAL: Lower abdominal pain, nausea, vomiting, or diarrhea. GENITOURINARY: Denies dysuria or hematuria. SKIN: Denies rash or itching. MUSCULOSKELETAL: Denies back pain, joint pain, or myalgia. NEUROLOGIC: Denies headache, numbness, or weakness. [facility] Past Medical History Medical History A-fib Bronchitis Cancer Lung, prostate, bone remission CHF (congestive heart failure) Degenerative disc disease L4 and L5 Heart palpitations Hypercholesterolemia Hypertension Lung cancer Macular degeneration Musculoskeletal disorder RA, back surgeries in the lumbar area Prostate cancer 1998, took radiation treatment 2002 Rheumatoid arthritis (~1999) Seasonal allergies Sepsis Sleep apnea Uses CPAP Surgical History Surgical History History of surgery on arm upper lt arm, due to lung CA moving into the bone Hx of spinal surgery Family History Family History Father Heart problem Mother Cancer Social History Social History Smoking status: Former smoker Alcohol intake: unknown Alcohol use details: Drinks a little ETOH Gender identity (if verbalized by the patient): Male Spiritual care concerns: No Course Course Emergency Course: Patient did have some bleeding into his Dougherty catheter. Patient also had some bleeding at the urethral meatus secondary to trauma from his Dougherty. Patient's Dougherty catheter was exchanged and the urine that was draining did not appear to have significant blood in it. Bleeding at the meatus did improve. Patient was started on antibiotics for a urinary tract infection. Case was discussed with the hospitalist and patient was accepted for admission. Vital Signs Vital signs: Vital Signs Temperature
--- NOTE | 2022-06-28 08:39 | PC.NURSE ---
Patient arrived with robertson in place. Upon removing patient's depends to clean patient of stool, noticed blood actively coming out of the tip of patient penis where robertson was inserted. CLARA Tovar removed patient's robertson to replace with new robertson due to clots and blood in patient's robertson bag. After removal of old robertson, tip of patient's penis was squirting fresh red blood. Dr. Powers called to bedside and made aware. Verbal order to place Urojet before new robertson placement. Supervisor [employer]ran[employer] placed urojet and inserted new robertson with ease into patient's penis. Small amount of blood entered robertson drainage tube then cloudy, yellow urine actively draining from patient's robertson bag. No more blood present. Bleeding from tip of penis decreasing. Dr. Powers made aware of new robertson placement.
[2022-06-28 08:45] LABS: Basophils Percent Auto 0.4 % (0.2-1.2); Eosinophils Percent Auto 0.1 % (0-4.4); Hematocrit 37.1 % (42.0-52.0); Hemoglobin 11.3 g/dL (14.0-18.0); Immature Granulocyte Absolute 0.16 K/mm3 (0.00-0.031); Immature Granulocyte Percent A 1.6 % (0-0.5); Lymphocytes Absolute Auto 0.54 K/mm3 (0.9-3.2); Lymphocytes Percent Auto 5.5 % (18.3-44.2); Mean Corpuscular HGB Conc 30.5 g/dl (32-36); Mean Corpuscular Hemoglobin 28.5 pg (26-34); Mean Corpuscular Volume 93.7 fl (80-100); Mean Platelet Volume 9.8 fl (7.4-10.4); Monocytes Absolute Auto 0.7 K/mm3 (0.1-0.6); Monocytes Percent Auto 7.3 % (2.6-8.5); Neutrophils Absolute Auto 8.3 K/mm3 (1.3-6.7); Neutrophils Percent Auto 85.1 % (45.5-73.1); Platelet Count Result 140 k/mm3 (150-375); Red Blood Count 3.96 M/mm3 (4.6-6.20); Red Cell Distribution Width 17.8 % (11.5-14.5); White Blood Count 9.8 K/mm3 (4.5-10.0)
[2022-06-28 08:51] LABS: Add Urine Microscopic? YES; Appearance Urine Cloudy (Clear); Bacteria Urine Trace /hpf; Bilirubin Urine Negative (Negative); Blood Urine 2+ (Negative); Color Urine Amber (Yellow); Glucose Urine UA Negative (Negative); Ketones Urine Negative (Negative); Leukocyte Esterase Ur 3+ LEU/UL (Negative); Mucus Urine Rare /lpf; Nitrate Urine Negative (Negative); Protein Urine 2+ mg/dL (Negative); RBC Urine 51-75 /hpf (0-2); Specific Grav Ur 1.011 (1.001-1.035); Urobilinogen Urine Negative mg/dL (<2.0); WBC Urine >75 /hpf
[2022-06-28 08:52] LABS: Alanine Aminotransferase 34 U/L (6-50); Albumin Level 2.6 g/dL (3.5-5.1); Alkaline Phosphatase 133 U/L (38-126); Anion Gap 8 mmol/L (8-16); Aspartate Amino Transferase 28 U/L (17-59); Bilirubin,Total 1.4 mg/dL (0.2-1.3); Blood Urea Nitrogen 40 mg/dL (9-20); Calcium 7.7 mg/dL (8.4-10.2); Carbon Dioxide 26 mmol/L (22-30); Chloride 104 mmol/L (98-107); Estimated CRCL calculation 40 ml/min; Estimated Glomerular Filt Rate 52; Glucose 136 mg/dL (65-110); Potassium 4.7 mmol/L (3.4-5.0); Sodium 138 mmol/L (137-145)
[2022-06-28] MEDS: LIDOCAINE HCL 2% GEL UROJET 10 ML PKG MUCOUS MEM (08:54)
[2022-06-28 08:59] LABS: INR 2.1; Prothrombin Time 22.7 Seconds (11.1-14.7)
[2022-06-28 09:17] LABS: Influenza A QL RT-PCR Negative (Negative); Influenza B QL RT-PCR Negative (Negative); SARS-CoV-2 RNA PCR Negative
[2022-06-28] MEDS: SODIUM CHLORIDE 0.9% IV 1,000 ML 125 ML IV CONT (10:17)
--- NOTE | 2022-06-28 11:26 | PM.IMHP ---
H&P: HPI History of Present Illness Date/Time: 06/28/22 11:26 Chief Complaint: Weakness Narrative: Edu Le is an 86 yo male with chronic afib, chronic robertson catheter for urinary retention, rheumatoid arthritis, sleep apnea on CPAP, hypertension, hyperlipidemia, prostate cancer, and stage 4 lung cancer in remission. He presented to the ED for evaluation of weakness. The patient is a poor historian. He reports waking up this morning feeling fatigued and weaker than yesterday. He states the [facility] staff reported he did not look well. He denies fever, chills, rigors, abdominal pain, N/V/D or constipation. He has a new cough without sputum and chronic back pain that does not seem to have worsened, he states. He endorses difficulties with his robertson catheter due to genital pain. He has an upcoming appointment with Urology for this. He states his catheter was changed 3-4 days ago for pain. Nursing reports the director of radio services reported the robertson catheter was changed 4 times this month for acute pain and clogging. In the ED, he was afebrile T 97.6F, HR 97, RR 28, BP 88/75, spO2 84% on room air. Lab work was significant for WBC 9.8 with left shift, H/H 11.3/37, platelet 140, BUN 40, creatinine 1.3, GFR 52, glucose 136, Tbili 1.4, alk phos 133, lactic acid 1.1, procalcitonin 18.2, and UA with 2+ blood, 3+ leukocytes, >75 WBC, trace bacteria, and no nitrates. Head CT showed no acute findings. Chest x-ray showed atelectasis and chronic airspace opacities consistent with radiation fibrosis. He was treated with 1 liter normal saline and Rocephin 1 gram IVPB. He will be admitted to the medical floor for further management of sepsis, UTI, and hypoxia. Review of Systems Review of Systems: All systems reviewed & are unremarkable except as noted in HPI and below PMFSH Past Medical History Medical History (Updated 06/28/22 @ 16:47 by Keira Rayo, JANIE) A-fib Bronchitis CHF (congestive heart failure) Degenerative disc disease L4 and L5 Hypercholesterolemia Hypertension Lung cancer stage 4 with mets to left humerus Macular degeneration worse right eye Presence of indwelling urinary catheter Prostate cancer 1998, took radiation treatment 2002 Rheumatoid arthritis (~1999) Seasonal allergies Sleep apnea Uses CPAP Spinal stenosis Surgical History Surgical History H/O wrist surgery right wrist History of surgery on arm upper lt arm, due to lung CA moving into the bone Hx of spinal surgery Family History Family History Father Heart problem Mother Cancer Social History Social History (Updated 06/28/22 @ 16:05 by Keira Rayo APRN) Smoking status: Former smoker Alcohol intake: former Substance use: never Living [facility] [facility] Additional living arrangements comments: [facility] Occupation/Education: other Gender identity (if verbalized by the patient): Male Spiritual care concerns: No Meds Home Medications and Allergies Home Medications Medication Instructions Recorded Confirmed Type aspirin 81 mg chewable tablet 81 mg PO DAILY 09/11/19 06/28/22 History atorvastatin 40 mg tablet 40 mg PO HS 09/11/19 06/28/22 History clonidine HCl 0.1 mg tablet 0.1 mg PO BID 09/11/19 06/28/22 History finasteride 5 mg tablet 5 mg PO DAILY 09/11/19 06/28/22 History fluticasone propionate 50 2 spray intranasal DAILY 09/11/19 06/28/22 History mcg/actuation nasal spray,suspension furosemide 40 mg tablet 20 mg PO DAILY 09/11/19 06/28/22 History glucosamine sulfate 500 mg tablet 500 mg PO BID 09/12/19 06/28/22 History (Glucosamine) apixaban 5 mg tablet (Eliquis) 5 mg PO BID 11/27/20 06/28/22 History acetaminophen 500 mg tablet 1,000 mg PO Q8H PRN pain or fever 02/22/21 06/28/22 History (Tylenol Extra Strength) amlodipine 10 mg tablet 10 mg PO DAILY
--- NOTE | 2022-06-28 12:32 | ADMGEN ---
This patient, Edu Le, was admitted to 2 Medical Room 255-. Patient/family oriented to hospital policies and general routines including ID bracelet, bed and alarms, visiting hours, pain management, procedures, bathroom and other care routines, personal items, smoking policy, room service/diet, and visiting hours. Information on how to activate the Rapid Response Team has been discussed. Patient/Family are encouraged to report perceived risks to care and to ask questions if they do not understand what they are told or what they should do.
[2022-06-28 14:21] LABS: Lactic Acid Reflex 1.1 mmol/L (0.7-2.0)
[2022-06-28 14:51] LABS: Procalcitonin 18.2 ng/mL
[2022-06-28] MEDS: SODIUM CHLORIDE 0.9% IV 250 ML 999 ML IV CONT (16:50)
--- NOTE | 2022-06-28 16:51 | WPDURCON ---
Assessment and Plan Assessment and plan (1) Acute UTI: Code(s): N39.0 - Urinary tract infection, site not specified Status: Acute Assessment and Plan: Cultures of blood and urine are pending at this time. Continue IV antibiotics, tailor to culture results. Likely contributing to weakness and hypotension in addition to dehydration. (2) Gross hematuria: Code(s): R31.0 - Gross hematuria Status: Acute Assessment and Plan: Will order a CT scan to further evaluate. His catheter is draining well and he has no bladder distention, I do not suspect clot retention, likely related to recent catheter change, Eliquis or UTI. (3) Presence of indwelling urinary catheter: Code(s): Z96.0 - Presence of urogenital implants Status: Chronic Assessment and Plan: Continue monthly catheter changes and PRN when catheter is clogged and cannot be irrigated. I encouraged increased fluid intake to help flush out urine sediment. Urology Consult Note HPI Date Seen: 06/28/22 Time Seen: 16:51 Requesting Physician: Jose Miguel Kaur MD Primary Care Provider: UNKNOWN,DOCTOR Consult Narrative Reason for consult: Hematuria/Chronic UTI's Narrative: Edu Le is a 86 year old male who presented to the ER today for acute onset of weakness. He is a patient of mine that I see for neurogenic bladder and chronic UTI's. He presents today from the [facility] with a catheter that was changed 3 days ago and has blood with moderate amounts of sediment in the tubing. It is draining to gravity. The patient states that it has to be changed weekly because it gets clogged and cannot be irrigated, causes severe pain and spasms and then once it's changed and draining he feels fine. He states he has no appetite and doesn't drink fluids. This has been a substantial problem for quite some time. We have had many conversations about hydration and how this contributes to catheter clogging and chronic UTI's, however he continues to be dehydrated. He has a WBC of 9.8, creatinine is 1.30, he is hypotensive but afebrile. No CT scan's have been done of his abdomen thus far. He is also on Eliquis at this time. Review of Systems Cardiovascular: Cardiovascular: Denies chest pain Respiratory: Respiratory: Reports no additional respiratory complaints Gastrointestinal: Gastrointestinal: Denies abdominal pain, Denies nausea and Denies vomiting Genitourinary: Genitourinary: Reports hematuria and Denies flank pain PMFSH Past Medical History Medical History A-fib Bronchitis CHF (congestive heart failure) Degenerative disc disease L4 and L5 Hypercholesterolemia Hypertension Lung cancer stage 4 with mets to left humerus Macular degeneration worse right eye Presence of indwelling urinary catheter Prostate cancer 1998, took radiation treatment 2002 Rheumatoid arthritis (~1999) Seasonal allergies Sleep apnea Uses CPAP Spinal stenosis Surgical History Surgical History H/O wrist surgery right wrist History of surgery on arm upper lt arm, due to lung CA moving into the bone Hx of spinal surgery Family History Family History Father Heart problem Mother Cancer Social History Social History Smoking status: Former smoker Alcohol intake: former Substance use: never Living arrangements: correction Additional living arrangements comments: [facility] [place] Occupation/Education: other Gender identity (if verbalized by the patient): Male Spiritual care concerns: No Meds Home Medications and Allergies Home Medications Medication Instructions Recorded Confirmed Type aspirin 81 mg chewable tablet 81 mg PO DAILY 09/11/19 06/28/22 History atorvastatin 40 mg tablet 40 mg PO H
[2022-06-28] MEDS: TAMSULOSIN HCL 0.4 MG CAPSULE PO (18:23)
[2022-06-28] MEDS: PIPERACILLIN/TAZOBACTAM SOD 4.5 GM in SODIUM CHLORIDE 0.9% IV 100 ML 200 ML IVPB ×2 (18:23→23:46)
[2022-06-28] MEDS: GABAPENTIN 300 MG CAPSULE PO (18:24)
[2022-06-28] MEDS: APIXABAN 5 MG TABLET PO (18:24)
[2022-06-28] MEDS: DICLOFENAC SODIUM 1% 100 GM GEL (*BKC) 1 APPLIC TOPICAL (18:24)
[2022-06-28] MEDS: traMADol HCL (*CRX) 50 MG TABLET PO (18:28)
[2022-06-28] MEDS: ATORVASTATIN 40 MG TABLET PO (20:18)
[2022-06-28] MEDS: guaiFENesin 12 HR 600 MG TABCR PO (20:18)
[2022-06-29 05:07] VITALS: BP 111/79; PULSE 72; RESP 20; TEMP 36.1; O2SAT 98
[2022-06-29 05:09] VITALS: BMI 32.5
[2022-06-29 05:32] LABS: Basophils Percent Auto 0.6 % (0.2-1.2); Eosinophils Absolute Auto 0.2 K/mm3 (0-0.3); Eosinophils Percent Auto 2.6 % (0-4.4); Hematocrit 36.2 % (42.0-52.0); Immature Granulocyte Absolute 0.05 K/mm3 (0.00-0.031); Immature Granulocyte Percent A 0.8 % (0-0.5); Lymphocytes Absolute Auto 0.71 K/mm3 (0.9-3.2); Lymphocytes Percent Auto 10.7 % (18.3-44.2); Mean Corpuscular HGB Conc 30.4 g/dl (32-36); Mean Corpuscular Hemoglobin 27.8 pg (26-34); Mean Corpuscular Volume 91.6 fl (80-100); Mean Platelet Volume 9.7 fl (7.4-10.4); Monocytes Absolute Auto 0.7 K/mm3 (0.1-0.6); Monocytes Percent Auto 10.1 % (2.6-8.5); Neutrophils Percent Auto 75.2 % (45.5-73.1); Platelet Count Result 123 k/mm3 (150-375); Red Blood Count 3.95 M/mm3 (4.6-6.20); Red Cell Distribution Width 17.7 % (11.5-14.5); White Blood Count 6.6 K/mm3 (4.5-10.0)
[2022-06-29 05:41] LABS: Alanine Aminotransferase 34 U/L (6-50); Albumin Level 2.5 g/dL (3.5-5.1); Alkaline Phosphatase 114 U/L (38-126); Anion Gap 7 mmol/L (8-16); Aspartate Amino Transferase 25 U/L (17-59); Bilirubin,Total 1.1 mg/dL (0.2-1.3); Blood Urea Nitrogen 31 mg/dL (9-20); Carbon Dioxide 26 mmol/L (22-30); Chloride 109 mmol/L (98-107); Estimated CRCL calculation 64 ml/min; Estimated Glomerular Filt Rate > 60; Glucose 93 mg/dL (65-110); Potassium 3.7 mmol/L (3.4-5.0); Sodium 142 mmol/L (137-145)
[2022-06-29] MEDS: PIPERACILLIN/TAZOBACTAM SOD 4.5 GM in SODIUM CHLORIDE 0.9% IV 100 ML 200 ML IVPB (06:47)
[2022-06-29 06:49] LABS: Folic Acid > 20.0 ng/mL (2.76->20)
--- NOTE | 2022-06-29 07:55 | PM.IMPN ---
Progress Note: A&P Assessment and Plan (1) Sepsis: Code(s): A41.9 - Sepsis, unspecified organism Status: Acute Assessment and Plan: Patient noted to have SBP<90, HR>90, RR>20, >10% bandemia and UA concerning for UTI in presence of chronic indwelling robertson. Lactic acid within normal limits Baseline procalcitonin 18 Continue antibiotics for UTI and pneumonia coverage. Blood cultures positive x2 bottles gram positive cocci, plus positive in 1 anaerobic bottle. Monitor hemodynamics, which are stable at this time. (2) Acute UTI: Code(s): N39.0 - Urinary tract infection, site not specified Status: Acute Assessment and Plan: UA with 2+ blood, 3+ leukocytes, >75 WBC, trace bacteria, and no nitrates Patient has h/o prior UTIs 08/2021, 09/2021, and 11/2021 with E.coli, Klebsiella pnemoniae, and pseudomonas aeruginosa. Antibiotics changed for blood culture results. 06/29/22 Continue Vancomycin, Cefepime and Metronidazole IV. Adjust antibiotics per urine culture (3) Aspiration pneumonia: Qualifiers: Aspiration pneumonia type: unspecified Code(s): J69.0 - Pneumonitis due to inhalation of food and vomit Status: Acute Assessment and Plan: Patient with noted cough while eating peaches on initial interview. He reports h/o dysphagia but is a poor historian. He has new O2 requirements 2L NC and no history of prior oxygen use, +bandemia, elevated procalcitonin, rhonchi and weak cough on physical exam. CXR shows chronic opacities, however, it may not show new aspiration. Antibiotics changed for blood culture results. 06/29/22 Continue Vancomycin, Cefepime and Metronidazole IV. NPO except meds and sips Consult Speech therapy for bedside evaluation. (4) Weakness: Code(s): R53.1 - Weakness Status: Acute Assessment and Plan: Patient admitted for c/o generalized weakness. Likely secondary to sepsis and acute infection. CT head negative for acute findings. LUE weaker than RUE, however patient and [facility] staff report this is not new. TSH, B12 and folate within normal limits. Treat UTI and possible aspiration pneumonitis PT/OT eval canceled. Patient is wheelchair bound at baseline. (5) Rheumatoid arthritis: Onset Date: ~1999 Qualifiers: Rheumatoid arthritis location: multiple sites Rheumatoid factor presence: unspecified presence Qualified Code(s): M06.9 - Rheumatoid arthritis, unspecified Code(s): M06.9 - Rheumatoid arthritis, unspecified Status: Chronic Assessment and Plan: Chronic. Continue tramadol scheduled and PRN. Hold hydroxychloroquine and methotrexate while treating acute infection. (6) A-fib: Qualifiers: Atrial fibrillation type: unspecified chronic Qualified Code(s): I48.20 - Chronic atrial fibrillation, unspecified Code(s): I48.91 - Unspecified atrial fibrillation Status: Chronic Assessment and Plan: chronic, not on rate controlling medications at this time. Monitor vitals. Continue Eliquis BID (7) Hypertension: Qualifiers: Hypertension type: primary hypertension Qualified Code(s): I10 - Essential (primary) hypertension Code(s): I10 - Essential (primary) hypertension Status: Chronic Assessment and Plan: Patient with BP 88/58, possibly due to sepsis and volume depletion. Bolus 250 mL NS x1 BP improving. Decrease IV fluids NS@50 mL/hour until able to take PO. Then saline lock with good PO. Continue clonidine daily with hold parameters to prevent rebound hypertension. Hold amlodipine for now. (8) Presence of indwelling urinary catheter: Code(s): Z96.0 - Presence of urogenital implants Status: Chronic Assessment and Plan: Concern for acute UTI in the presence of chronic catheter. Patient scheduled to see Dr. Taylor next Friday for evaluation of pain at catheter insertion and frequent c
[2022-06-29] MEDS: TAMSULOSIN HCL 0.4 MG CAPSULE PO ×2 (09:19→17:24)
[2022-06-29] MEDS: GABAPENTIN 300 MG CAPSULE PO ×3 (09:19→17:24)
[2022-06-29] MEDS: guaiFENesin 12 HR 600 MG TABCR PO ×2 (09:19→20:03)
[2022-06-29] MEDS: FINASTERIDE 5 MG TABLET PO (09:20)
[2022-06-29] MEDS: APIXABAN 5 MG TABLET PO ×2 (09:20→17:24)
[2022-06-29] MEDS: FLUTICASONE PROPIONATE 0.05% NA SPR 16 GM BTL (*BKC) 2 SPRAY NASAL (09:20)
[2022-06-29] MEDS: DICLOFENAC SODIUM 1% 100 GM GEL (*BKC) 1 APPLIC TOPICAL ×3 (09:20→17:25)
[2022-06-29] MEDS: ASPIRIN 81 MG CHEWABLE TABLET PO (09:20)
[2022-06-29] MEDS: LACTULOSE 20 GM/30 ML UDC 30 GM PO (09:21)
[2022-06-29] MEDS: traMADol HCL (*CRX) 50 MG TABLET PO ×3 (09:23→17:24)
--- NOTE | 2022-06-29 09:55 | WPDUROPN2 ---
Progress Note: A&P Assessment and Plan (1) Gross hematuria: Code(s): R31.0 - Gross hematuria Status: Acute Assessment and Plan: Urine fairly clear at this time. Would recommend simply irrigating catheter Q shift as he has had problems in the past with clogging of his catheter. I am told that he has an appointment to see Dr. Jackson on Friday. Possibly Dr. Boo skin see him in house on Friday if patient is still here. CT scan revealed questionable filling defects in the right ureter. May require cysto retrograde ureteroscopy once gets over this acute episode. Will defer to Dr. Jackson as I believe he is his urologist Subjective Subjective Date/Time Seen: 06/29/22 09:55 Principal diagnosis: Hematuria Interval history: Appears to be resolving at this time. No major complaints at this point time. Pulmonary status being evaluated Review of Systems Review of Systems: All systems reviewed & are unremarkable except as noted in HPI and below Exam Const: General: cooperative and comfortable Cardio: Rhythm: regular rhythm Objective Data Vital Signs Vital Signs: Vital Signs - 24 hr 06/28/22 10:00 06/28/22 10:15 06/28/22 10:17 Temperature Pulse Rate 74 93 77 Respiratory Rate 20 19 16 Blood Pressure 97/67 L Pulse Oximetry 100 99 98 Oxygen Delivery Oxygen Flow Rate 06/28/22 10:31 06/28/22 10:32 06/28/22 11:17 Temperature Pulse Rate 80 87 81 Respiratory Rate 17 20 20 Blood Pressure 97/65 L Pulse Oximetry 97 97 97 Oxygen Delivery Oxygen Flow Rate 06/28/22 11:30 06/28/22 11:31 06/28/22 12:30 Temperature Pulse Rate 86 76 83 Respiratory Rate 20 14 16 Blood Pressure 92/61 L 94/65 L Pulse Oximetry 97 95 96 Oxygen Delivery Oxygen Flow Rate 06/28/22 14:00 06/28/22 17:11 06/28/22 20:00 Temperature 36.8 C Pulse Rate 82 Respiratory Rate 18 Blood Pressure 88/58 L Pulse Oximetry 100 96 98 Oxygen Delivery Nasal Cannula Nasal Cannula Oxygen Flow Rate 2.5 2 06/28/22 20:33 06/29/22 05:07 Temperature 35.6 C L 36.1 C L Pulse Rate 75 72 Respiratory Rate 20 20 Blood Pressure 105/67 111/79 Pulse Oximetry 98 98 Oxygen Delivery Oxygen Flow Rate Intake/Output Intake/Output: Intake & Output 06/26/22 06/27/22 06/28/22 06/29/22 23:59 23:59 23:59 23:59 Intake Total 1390 100 Output Total 650 750 Balance 740 -650 Meds/Results Medications: Active Medications Generic Name Dose Route Start Last Admin Trade Name Freq PRN Reason Stop Dose Admin Acetaminophen 1,000 mg 06/28/22 15:21 Acetaminophen 500 Mg Tablet PO Q8H PRN pain 1-3 or fever Albuterol 2.5 mg 06/28/22 15:18 Albuterol Sulfate Neb 2.5 Mg/3 Ml Inh INHALATION Q4HRT PRN Shortness Of Breath Or Wheezing Amlodipine Besylate 10 mg 06/29/22 09:00 Amlodipine Besylate 5 Mg Tablet PO DAILY NANCY Apixaban 5 mg 06/28/22 17:00 06/29/22 09:20 Apixaban 5 Mg Tablet PO 5 mg BID NANCY Administration Aspirin 81 mg 06/29/22 09:00 06/29/22 09:20 Aspirin 81 Mg Chewable Tablet PO 81 mg DAILY NANCY Administration Atorvastatin Calcium 40 mg 06/28/22 21:00 06/28/22 20:18 Atorvastatin 40 Mg Tablet PO 40 mg HS NANCY Administration Clonazepam 1 mg 06/28/22 21:00 06/28/22 20:18 Clonazepam (*Crx) 0.5 Mg Tablet PO Not Given QHS [facility] Clonidine HCl 0.1 mg 06/29/22 09:00 Clonidine Hcl 0.1 Mg Tablet PO DAILY [facility] Diclofenac Sodium 1 applic 06/28/22 17:00 06/29/22 09:20 Diclofenac Sodium 1% 100 Gm Gel (*Bkc) TOPICAL 1 applic TID NANCY Administration Finasteride 5 mg 06/29/22 09:00 06/29/22 09:20 Finasteride 5 Mg Tablet PO 5 mg DAILY NANCY Administration Fluticasone Propionate 2 spray 06/29/22 09:00 06/29/22 09:20 Fluticasone Propionate 0.05% Na Spr 16 Gm Btl (*Bkc) NASAL 2 spray DAILY NANCY Administration Gabapentin 300 mg 06/28/22 17:00 06/29/22 09:19 Gabapentin
--- NOTE | 2022-06-29 10:57 | PCSTNOTE ---
Please refer to the Bedside Swallow Evaluation in the EMR. Please note, silent aspiration cannot be ruled out at bedside.
--- NOTE | 2022-06-29 12:22 | PCSTNOTE ---
On 06/29/22, the student, Ibeth Guillermo, provided care and completed [facility] documentation on this patient. I have reviewed the student's documentation and agree with the findings.
[2022-06-29] MEDS: metroNIDAZOLE 500 MG/ISO 100ML 500 MG/100 ML BAG 100 MG IVPB ×2 (13:32→19:45)
[2022-06-29 14:00] VITALS: BP 99/59; PULSE 79; RESP 18; TEMP 36.7; O2SAT 99
--- NOTE | 2022-06-29 15:13 | PCSTNOTE ---
Please refer to the Modified Barium Swallow Evaluation in the EMR.
[2022-06-29] MEDS: ASCORBIC ACID 500 MG TABLET PO (17:31)
[2022-06-29] MEDS: DOCUSATE SODIUM 100 MG CAPSULE PO (17:32)
[2022-06-29] MEDS: SACCHAROMYCES BOULARDII 250 MG CAPSULE PO (17:32)
[2022-06-29 19:57] VITALS: O2SAT 99
[2022-06-29] MEDS: ATORVASTATIN 40 MG TABLET PO (20:03)
[2022-06-29 20:29] VITALS: BP 122/78; PULSE 99; RESP 16; TEMP 36.5; O2SAT 97
[2022-06-29 22:32] VITALS: PULSE 73; O2SAT 95
[2022-06-30] VITALS (7 sets, daily range): BP systolic 122–132; BP diastolic 70–81; PULSE 70–90; RESP 20; TEMP 36.4–37; O2SAT 94–99
[2022-06-30] MEDS: metroNIDAZOLE 500 MG/ISO 100ML 500 MG/100 ML BAG 100 MG IVPB ×3 (03:43→21:10)
[2022-06-30 05:57] LABS: Basophils Percent Auto 0.6 % (0.2-1.2); Eosinophils Absolute Auto 0.2 K/mm3 (0-0.3); Eosinophils Percent Auto 4.3 % (0-4.4); Immature Granulocyte Absolute 0.02 K/mm3 (0.00-0.031); Immature Granulocyte Percent A 0.4 % (0-0.5); Lymphocytes Absolute Auto 0.73 K/mm3 (0.9-3.2); Mean Corpuscular HGB Conc 30.6 g/dl (32-36); Mean Corpuscular Volume 91.6 fl (80-100); Mean Platelet Volume 9.6 fl (7.4-10.4); Monocytes Absolute Auto 0.5 K/mm3 (0.1-0.6); Monocytes Percent Auto 9.8 % (2.6-8.5); Neutrophils Absolute Auto 3.4 K/mm3 (1.3-6.7); Neutrophils Percent Auto 69.9 % (45.5-73.1); Platelet Count Result 129 k/mm3 (150-375); Red Blood Count 3.93 M/mm3 (4.6-6.20); Red Cell Distribution Width 17.3 % (11.5-14.5); White Blood Count 4.9 K/mm3 (4.5-10.0)
[2022-06-30 06:22] LABS: Alanine Aminotransferase 44 U/L (6-50); Albumin Level 2.6 g/dL (3.5-5.1); Alkaline Phosphatase 142 U/L (38-126); Anion Gap 6 mmol/L (8-16); Aspartate Amino Transferase 33 U/L (17-59); Bilirubin,Total 0.8 mg/dL (0.2-1.3); Blood Urea Nitrogen 22 mg/dL (9-20); Carbon Dioxide 27 mmol/L (22-30); Chloride 109 mmol/L (98-107); Estimated CRCL calculation 81 ml/min; Estimated Glomerular Filt Rate > 60; Glucose 131 mg/dL (65-110); Potassium 3.8 mmol/L (3.4-5.0); Sodium 142 mmol/L (137-145)
[2022-06-30] MEDS: DICLOFENAC SODIUM 1% 100 GM GEL (*BKC) 1 APPLIC TOPICAL ×3 (08:03→17:18)
[2022-06-30] MEDS: APIXABAN 5 MG TABLET PO ×2 (08:03→17:20)
[2022-06-30] MEDS: FERROUS SULFATE 324 MG TABLET PO (08:03)
[2022-06-30] MEDS: ASCORBIC ACID 500 MG TABLET PO ×2 (08:03→17:19)
[2022-06-30] MEDS: guaiFENesin 12 HR 600 MG TABCR PO ×2 (08:04→21:11)
[2022-06-30] MEDS: FINASTERIDE 5 MG TABLET PO (08:04)
[2022-06-30] MEDS: ASPIRIN 81 MG CHEWABLE TABLET PO (08:04)
[2022-06-30] MEDS: GABAPENTIN 300 MG CAPSULE PO ×3 (08:04→17:18)
[2022-06-30] MEDS: TAMSULOSIN HCL 0.4 MG CAPSULE PO ×2 (08:04→17:21)
[2022-06-30] MEDS: DOCUSATE SODIUM 100 MG CAPSULE PO ×2 (08:04→17:18)
[2022-06-30] MEDS: FOLIC ACID 1 MG TABLET PO (08:04)
[2022-06-30] MEDS: LACTULOSE 20 GM/30 ML UDC 30 GM PO (08:04)
[2022-06-30] MEDS: SACCHAROMYCES BOULARDII 250 MG CAPSULE PO ×3 (08:04→17:20)
[2022-06-30] MEDS: FLUTICASONE PROPIONATE 0.05% NA SPR 16 GM BTL (*BKC) 2 SPRAY NASAL (08:05)
[2022-06-30] MEDS: traMADol HCL (*CRX) 50 MG TABLET PO ×3 (08:06→17:18)
--- NOTE | 2022-06-30 08:27 | PM.IMPN ---
Progress Note: A&P Assessment and Plan (1) Sepsis: Code(s): A41.9 - Sepsis, unspecified organism Status: Acute Assessment and Plan: Patient noted to have SBP<90, HR>90, RR>20, >10% bandemia and UA concerning for UTI in presence of chronic indwelling robertson. Lactic acid within normal limits Baseline procalcitonin 18 Continue antibiotics for UTI and pneumonia coverage. Blood cultures positive x2 bottles gram positive cocci, plus positive in 1 anaerobic bottle. Monitor hemodynamics, which are stable at this time. 06/30/22 Repeat blood cultures x2 today. Await initial blood cultures sensitivities (2) Acute UTI: Code(s): N39.0 - Urinary tract infection, site not specified Status: Acute Assessment and Plan: UA with 2+ blood, 3+ leukocytes, >75 WBC, trace bacteria, and no nitrates Patient has h/o prior UTIs 08/2021, 09/2021, and 11/2021 with E.coli, Klebsiella pnemoniae, and pseudomonas aeruginosa. Antibiotics changed for positive preliminary blood culture results. 06/29/22 Continue Vancomycin, Cefepime and Metronidazole IV. urine culture shows mixed blas. (3) Aspiration pneumonia: Qualifiers: Aspiration pneumonia type: due to regurgitated food Laterality: bilateral Lung location: unspecified part of lung Qualified Code(s): J69.0 - Pneumonitis due to inhalation of food and vomit Code(s): J69.0 - Pneumonitis due to inhalation of food and vomit Status: Acute Assessment and Plan: Patient with noted cough while eating peaches on initial interview. He reports h/o dysphagia but is a poor historian. He has new O2 requirements 2L [place] and no history of prior oxygen use, +bandemia, elevated procalcitonin, rhonchi and weak cough on physical exam. CXR shows chronic opacities, however, it may not show new aspiration. Antibiotics changed for blood culture results. 06/29/22 Continue Vancomycin, Cefepime and Metronidazole IV. Consult Speech therapy for bedside evaluation. Modified barium swallow study showed laryngeal penetration. Honey thickened liquids with regular consistency fluids recommended. 06/30/22 physical exam shows improving lung sounds. Day 3 antibiotics- Zosyn 4.5g 06/28-06/29; cefepime +flagyl 06/29 to current. (4) Weakness: Code(s): R53.1 - Weakness Status: Acute Assessment and Plan: Patient admitted for c/o generalized weakness. Likely secondary to sepsis and acute infection. CT head negative for acute findings. LUE weaker than RUE, however patient and [facility] report this is not new. TSH, B12 and folate within normal limits. Treat UTI and possible aspiration pneumonitis PT/OT eval canceled. Patient is wheelchair bound at baseline. (5) Rheumatoid arthritis: Onset Date: ~1999 Qualifiers: Rheumatoid arthritis location: multiple sites Rheumatoid factor presence: unspecified presence Qualified Code(s): M06.9 - Rheumatoid arthritis, unspecified Code(s): M06.9 - Rheumatoid arthritis, unspecified Status: Chronic Assessment and Plan: Chronic. Continue tramadol scheduled and PRN. Hold hydroxychloroquine and methotrexate while treating acute infection. (6) A-fib: Qualifiers: Atrial fibrillation type: unspecified chronic Qualified Code(s): I48.20 - Chronic atrial fibrillation, unspecified Code(s): I48.91 - Unspecified atrial fibrillation Status: Chronic Assessment and Plan: chronic, not on rate controlling medications at this time. Monitor vitals. Continue Eliquis BID (7) Hypertension: Qualifiers: Hypertension type: primary hypertension Qualified Code(s): I10 - Essential (primary) hypertension Code(s): I10 - Essential (primary) hypertension Status: Chronic Assessment and Plan: Patient with BP 88/58, possibly due to sepsis and volume depletion. Bolus 250 mL NS x1 BP improving. Decrease IV fluids NS@50 mL/h
--- NOTE | 2022-06-30 11:02 | WPDUROPN2 ---
Progress Note: A&P Assessment and Plan (1) Gross hematuria: Code(s): R31.0 - Gross hematuria Status: Acute Assessment and Plan: Urine clear at this time. Will defer management of ureteral filling defects on CT scan to Dr. Taylor Subjective Subjective Date/Time Seen: 06/30/22 11:02 Principal diagnosis: Urinary retention and hematuria Interval history: Urine clear at this point time. Patient due to see in office later in week. Will notify his admission. Patient was some filling defects noted on CT urogram of right ureter. Will defer to Dr. Taylor Review of Systems Review of Systems: All systems reviewed & are unremarkable except as noted in HPI and below Objective Data Vital Signs Vital Signs: Vital Signs - 24 hr 06/29/22 14:00 06/29/22 19:57 06/29/22 20:29 Temperature 36.7 C 36.5 C Pulse Rate 79 99 Respiratory Rate 18 16 Blood Pressure 99/59 L 122/78 Pulse Oximetry 99 99 97 Oxygen Delivery Nasal Cannula Oxygen Flow Rate 2 06/29/22 22:32 06/30/22 02:44 06/30/22 05:56 Temperature 37.0 C Pulse Rate 73 70 79 Respiratory Rate 20 Blood Pressure 124/80 Pulse Oximetry 95 96 99 Oxygen Delivery Oxygen Flow Rate 06/30/22 10:15 Temperature Pulse Rate Respiratory Rate Blood Pressure Pulse Oximetry 94 Oxygen Delivery Nasal Cannula Oxygen Flow Rate 2 Intake/Output Intake/Output: Intake & Output 06/27/22 06/28/22 06/29/22 06/30/22 23:59 23:59 23:59 23:59 Intake Total 1640 1340 740 Output Total 650 1400 450 Balance 990 -60 290 Meds/Results Medications: Active Medications Generic Name Dose Route Start Last Admin Trade Name Freq PRN Reason Stop Dose Admin Acetaminophen 1,000 mg 06/28/22 15:21 Acetaminophen 500 Mg Tablet PO Q8H PRN pain 1-3 or fever Albuterol 2.5 mg 06/28/22 15:18 Albuterol Sulfate Neb 2.5 Mg/3 Ml Inh INHALATION Q4HRT PRN Shortness Of Breath Or Wheezing Amlodipine Besylate 10 mg 06/29/22 09:00 Amlodipine Besylate 5 Mg Tablet PO DAILY NANCY Apixaban 5 mg 06/28/22 17:00 06/30/22 08:03 Apixaban 5 Mg Tablet PO 5 mg BID NANCY Administration Ascorbic Acid 500 mg 06/29/22 17:00 06/30/22 08:03 Ascorbic Acid 500 Mg Tablet PO 500 mg BID NANCY Administration Aspirin 81 mg 06/29/22 09:00 06/30/22 08:04 Aspirin 81 Mg Chewable Tablet PO 81 mg DAILY NANCY Administration Atorvastatin Calcium 40 mg 06/28/22 21:00 06/29/22 20:03 Atorvastatin 40 Mg Tablet PO 40 mg HS [facility] Administration Clonazepam 1 mg 06/28/22 21:00 06/29/22 19:56 Clonazepam (*Crx) 0.5 Mg Tablet PO Not Given QHS [facility] Clonidine HCl 0.1 mg 06/29/22 09:00 Clonidine Hcl 0.1 Mg Tablet PO DAILY [facility] Diclofenac Sodium 1 applic 06/28/22 17:00 06/30/22 08:03 Diclofenac Sodium 1% 100 Gm Gel (*Bkc) TOPICAL 1 applic TID [facility] Administration Docusate Sodium 100 mg 06/29/22 17:00 06/30/22 08:04 Docusate Sodium 100 Mg Capsule PO 100 mg BID [facility] Administration Ferrous Sulfate 324 mg 06/30/22 09:00 06/30/22 08:03 Ferrous Sulfate 324 Mg Tablet PO 324 mg DAILY NANCY Administration Finasteride 5 mg 06/29/22 09:00 06/30/22 08:04 Finasteride 5 Mg Tablet PO 5 mg DAILY [facility] Administration Fluticasone Propionate 2 spray 06/29/22 09:00 06/30/22 08:05 Fluticasone Propionate 0.05% Na Spr 16 Gm Btl (*Bkc) NASAL 2 spray DAILY [facility] Administration Folic Acid 1 mg 06/30/22 09:00 06/30/22 08:04 Folic Acid 1 Mg Tablet PO 1 mg DAILY NANCY Administration Gabapentin 300 mg 06/28/22 17:00 06/30/22 08:04 Gabapentin 300 Mg Capsule PO 300 mg TID [facility] Administration Guaifenesin 600 mg 06/28/22 21:00 06/30/22 08:04 Guaifenesin 12 Hr 600 Mg Tabcr PO 600 mg Q12HR NANCY Administration Cefepime HCl 2 gm in 50 mls @ 100 mls/hr 06/29/22 14:00 06/30/22 06:07 Maxipime 2 Gm/D5w 50 Ml IVPB 100 mls/hr Q8HR NANCY Adminis
--- NOTE | 2022-06-30 13:21 | PCSTNOTE ---
On 06/30/22, the student, Ibeth Guillermo, provided care and completed [facility] documentation on this patient. I have reviewed the student's documentation and agree with the findings.
[2022-06-30] MEDS: ATORVASTATIN 40 MG TABLET PO (21:11)
[2022-06-30] MEDS: clonazePAM (*CRX) 0.5 MG TABLET 1 MG PO (21:11)
[2022-06-30 22:37] LABS: Vancomycin Trough 12.7 ug/mL (10.0-20.0)
[2022-06-30] MEDS: WATER FOR IRRIGATION, STERILE 1,000 ML BOTTLE 1000 ML (22:37)
[2022-07-01 03:48] VITALS: PULSE 80; O2SAT 96
[2022-07-01] MEDS: metroNIDAZOLE 500 MG/ISO 100ML 500 MG/100 ML BAG 100 MG IVPB (04:21)
[2022-07-01 05:12] VITALS: BP 140/79; PULSE 82; RESP 16; TEMP 36.7; O2SAT 98
[2022-07-01 05:56] LABS: Basophils Percent Auto 0.8 % (0.2-1.2); Eosinophils Absolute Auto 0.2 K/mm3 (0-0.3); Hematocrit 36.2 % (42.0-52.0); Hemoglobin 11.2 g/dL (14.0-18.0); Immature Granulocyte Absolute 0.03 K/mm3 (0.00-0.031); Immature Granulocyte Percent A 0.6 % (0-0.5); Lymphocytes Percent Auto 19.9 % (18.3-44.2); Mean Corpuscular HGB Conc 30.9 g/dl (32-36); Mean Corpuscular Volume 90.5 fl (80-100); Mean Platelet Volume 10.3 fl (7.4-10.4); Monocytes Absolute Auto 0.5 K/mm3 (0.1-0.6); Neutrophils Absolute Auto 3.3 K/mm3 (1.3-6.7); Neutrophils Percent Auto 64.7 % (45.5-73.1); Platelet Count Result 134 k/mm3 (150-375); Red Cell Distribution Width 17.1 % (11.5-14.5)
[2022-07-01 06:52] LABS: Alanine Aminotransferase 55 U/L (6-50); Albumin Level 2.7 g/dL (3.5-5.1); Alkaline Phosphatase 183 U/L (38-126); Anion Gap 4 mmol/L (8-16); Aspartate Amino Transferase 39 U/L (17-59); Bilirubin,Total 0.8 mg/dL (0.2-1.3); Blood Urea Nitrogen 17 mg/dL (9-20); Calcium 7.9 mg/dL (8.4-10.2); Carbon Dioxide 28 mmol/L (22-30); Chloride 107 mmol/L (98-107); Estimated CRCL calculation 81 ml/min; Estimated Glomerular Filt Rate > 60; Glucose 109 mg/dL (65-110); Potassium 3.6 mmol/L (3.4-5.0); Sodium 139 mmol/L (137-145)
[2022-07-01 09:00] VITALS: O2SAT 95
[2022-07-01] MEDS: LACTULOSE 20 GM/30 ML UDC 30 GM PO (09:16)
[2022-07-01] MEDS: FLUTICASONE PROPIONATE 0.05% NA SPR 16 GM BTL (*BKC) 2 SPRAY NASAL (09:16)
[2022-07-01] MEDS: SACCHAROMYCES BOULARDII 250 MG CAPSULE PO ×3 (09:16→18:09)
[2022-07-01] MEDS: TAMSULOSIN HCL 0.4 MG CAPSULE PO ×2 (09:17→18:09)
[2022-07-01] MEDS: FERROUS SULFATE 324 MG TABLET PO (09:17)
[2022-07-01] MEDS: DOCUSATE SODIUM 100 MG CAPSULE PO ×2 (09:17→18:10)
[2022-07-01] MEDS: APIXABAN 5 MG TABLET PO ×2 (09:17→18:10)
[2022-07-01] MEDS: FOLIC ACID 1 MG TABLET PO (09:17)
[2022-07-01] MEDS: ASCORBIC ACID 500 MG TABLET PO ×2 (09:17→18:10)
[2022-07-01] MEDS: FINASTERIDE 5 MG TABLET PO (09:17)
[2022-07-01] MEDS: GABAPENTIN 300 MG CAPSULE PO ×3 (09:17→18:11)
[2022-07-01] MEDS: ASPIRIN 81 MG CHEWABLE TABLET PO (09:17)
[2022-07-01] MEDS: DICLOFENAC SODIUM 1% 100 GM GEL (*BKC) 1 APPLIC TOPICAL ×3 (09:17→18:11)
[2022-07-01] MEDS: guaiFENesin 12 HR 600 MG TABCR PO ×2 (09:17→21:14)
[2022-07-01] MEDS: traMADol HCL (*CRX) 50 MG TABLET PO ×3 (09:18→18:11)
--- NOTE | 2022-07-01 11:38 | PM.IMPN ---
Progress Note: A&P Assessment and Plan (1) Sepsis: Code(s): A41.9 - Sepsis, unspecified organism Status: Acute Assessment and Plan: Patient noted to have SBP<90, HR>90, RR>20, >10% bandemia and UA concerning for UTI in presence of chronic indwelling robertson. Lactic acid within normal limits Baseline procalcitonin 18 Continue antibiotics for UTI and pneumonia coverage. Blood cultures positive x2 bottles gram positive cocci, plus positive in 1 anaerobic bottle. Monitor hemodynamics, which are stable at this time. 06/30/22 Repeat blood cultures x2 today. Await initial blood cultures sensitivities 07/01/22 blood cultures with proteus and klebsiella growth sensitive to penicillins. Repeat blood cultures 06/30/22 preliminarily negative. Stop cefepime, vancomycin and flagyl. Start Augmentin BID to complete 7-10 day course. Repeat procalcitonin in the morning. (2) Acute UTI: Code(s): N39.0 - Urinary tract infection, site not specified Status: Acute Assessment and Plan: UA with 2+ blood, 3+ leukocytes, >75 WBC, trace bacteria, and no nitrates Patient has h/o prior UTIs 08/2021, 09/2021, and 11/2021 with E.coli, Klebsiella pnemoniae, and pseudomonas aeruginosa. Antibiotics changed for positive preliminary blood culture results. 06/29/22 Continue Vancomycin, Cefepime and Metronidazole IV. urine culture shows mixed blas. 07/01/22 antibiotics as above. Antibiotic day 4. (3) Aspiration pneumonia: Qualifiers: Aspiration pneumonia type: due to regurgitated food Laterality: bilateral Lung location: unspecified part of lung Qualified Code(s): J69.0 - Pneumonitis due to inhalation of food and vomit Code(s): J69.0 - Pneumonitis due to inhalation of food and vomit Status: Acute Assessment and Plan: Patient with noted cough while eating peaches on initial interview. He reports h/o dysphagia but is a poor historian. He has new O2 requirements 2L [place] and no history of prior oxygen use, +bandemia, elevated procalcitonin, rhonchi and weak cough on physical exam. CXR shows chronic opacities, however, it may not show new aspiration. Antibiotics changed for blood culture results. 06/29/22 Continue Vancomycin, Cefepime and Metronidazole IV. Consult Speech therapy for bedside evaluation. Modified barium swallow study showed laryngeal penetration. Honey thickened liquids with regular consistency fluids recommended. 06/30/22 physical exam shows improving lung sounds. Day 3 antibiotics- Zosyn 4.5g 06/28-06/29; cefepime +flagyl 06/29 to current. 07/01/22 as above. (4) Weakness: Code(s): R53.1 - Weakness Status: Acute Assessment and Plan: Patient admitted for c/o generalized weakness. Likely secondary to sepsis and acute infection. CT head negative for acute findings. LUE weaker than RUE, however patient and [facility] staff report this is not new. TSH, B12 and folate within normal limits. Treat UTI and possible aspiration pneumonitis PT/OT eval canceled. Patient is wheelchair bound at baseline. At baseline. (5) Rheumatoid arthritis: Onset Date: ~1999 Qualifiers: Rheumatoid arthritis location: multiple sites Rheumatoid factor presence: unspecified presence Qualified Code(s): M06.9 - Rheumatoid arthritis, unspecified Code(s): M06.9 - Rheumatoid arthritis, unspecified Status: Chronic Assessment and Plan: Chronic. Continue tramadol scheduled and PRN. Hold hydroxychloroquine and methotrexate while treating acute infection. (6) A-fib: Qualifiers: Atrial fibrillation type: unspecified chronic Qualified Code(s): I48.20 - Chronic atrial fibrillation, unspecified Code(s): I48.91 - Unspecified atrial fibrillation Status: Chronic Assessment and Plan: chronic, not on rate controlling medications at this time. Monitor vitals. Continue Eliquis BID (7) Hypertension: Qualifiers:
[2022-07-01 12:52] VITALS: BP 149/81; PULSE 80; RESP 20; TEMP 36.6; O2SAT 95
--- NOTE | 2022-07-01 15:58 | WPDUROPN2 ---
Progress Note: A&P Assessment and Plan (1) Gross hematuria: Code(s): R31.0 - Gross hematuria Status: Acute Assessment and Plan: Resolved, continue to irrigate q shift and 2x/day at the CT. He may need cath changes more frequently than monthly if his catheter clogs and cannot drain. He was not drinking fluids before and understands that dehydration plays a big role in his chronic UTI's, sediment and dark urine. Now he has aspiration pneumonia and is on thickened liquids which makes it more difficult for him to get the fluids he needs. (2) Presence of indwelling urinary catheter: Code(s): Z96.0 - Presence of urogenital implants Status: Chronic Assessment and Plan: I had a long discussion with his caregiver today that since there was a filling defect in the right ureter found on CT scan, the best way to evaluate that would be to do a cystoscopy with right ureteral retrograde pyelogram and possible biopsy. However, the patient is not interested in anesthesia or any surgeries, therefore we discussed that hospice and comfort care may be best for him, as there isn't much else we can do at this time to help him. He is bed bound, weak and unable to care for himself, has no appetite and has failure to thrive at this time. His caregiver states she has been trying to get him to change his status to a no code but he is scared to. (3) Sepsis: Code(s): A41.9 - Sepsis, unspecified organism Status: Acute Assessment and Plan: Continue IV antibiotics. (4) Acute UTI: Code(s): N39.0 - Urinary tract infection, site not specified Status: Acute Assessment and Plan: urine CUlture negative. Time Spent With Patient Time with patient: 15 - 25 minutes Subjective Subjective Date/Time Seen: 07/01/22 15:58 Patient's blood cultures grew Proteus and Klebsiella, urine cultures negative. His CT scan reveals small bladder stones with multiple filling defects in the right ureter with bilateral stones that are non obstructive. His urine appears much more clear today and is draining to gravity. He is asleep during my visit. I had a long discussion with his caregiver over the phone today about his progress. We discussed that he is aware that without PO fluids his urine will likely never clear, therefore regular, everyday irrigations of his catheter will be necessary and catheter changes as needed especially monthly will also be needed. Review of Systems Review of Systems: ROS unobtainable: Yes other (Patient is asleep.) Exam Resp: Effort & Inspection: normal respiratory effort Cardio: Rate: regular rate Urinary Catheter: Urinary Catheter: patent and draining and urine clear Objective Data Vital Signs Vital Signs: Vital Signs - 24 hr 06/30/22 21:50 06/30/22 22:06 06/30/22 21:00 Temperature 98.2 F Pulse Rate 75 82 Respiratory Rate 20 Blood Pressure 132/70 Pulse Oximetry 98 97 97 Oxygen Delivery Autopap Nasal Cannula Oxygen Flow Rate 2 07/01/22 03:48 07/01/22 05:12 07/01/22 09:00 Temperature 98.0 F Pulse Rate 80 82 Respiratory Rate 16 Blood Pressure 140/79 Pulse Oximetry 96 98 95 Oxygen Delivery Autopap Room Air Oxygen Flow Rate 07/01/22 12:52 Temperature 97.9 F Pulse Rate 80 Respiratory Rate 20 Blood Pressure 149/81 H Pulse Oximetry 95 Oxygen Delivery Oxygen Flow Rate Intake/Output Intake/Output: Intake & Output 06/28/22 06/29/22 06/30/22 07/01/22 23:59 23:59 23:59 23:59 Intake Total 1640 1340 2290 1130 Output Total 650 1400 1000 550 Balance 990 -60 1290 580 Meds/Results Medications: Active Medications Generic Name Dose Route Start Last Admin Trade Name Freq PRN Reason Stop Dose Admin Acetaminophen 1,000 mg 06/28/22 15:21 Acetaminophen 500 Mg Tablet PO Q8H PRN pain 1-3 or fever Albuterol 2.5 mg 06/28/22 15:18 Albuterol Sulfate Neb 2.5 Mg/3 Ml Inh INHALATION Q4HRT PRN Shortness O
[2022-07-01] MEDS: clonazePAM (*CRX) 0.5 MG TABLET 1 MG PO (21:14)
[2022-07-01] MEDS: AMOXICILLIN/CLAVULANATE K 875-125 MG TAB 1 TABLET PO (21:14)
[2022-07-01] MEDS: ATORVASTATIN 40 MG TABLET PO (21:14)
[2022-07-01 22:35] VITALS: BP 154/80; PULSE 87; RESP 18; TEMP 36.2; O2SAT 95
[2022-07-01 23:18] VITALS: PULSE 82; O2SAT 95
[2022-07-02 03:16] VITALS: PULSE 85; O2SAT 94
[2022-07-02 05:36] LABS: Basophils Absolute Auto 0.1 K/mm3 (0.0-0.1); Basophils Percent Auto 1.2 % (0.2-1.2); Eosinophils Absolute Auto 0.2 K/mm3 (0-0.3); Eosinophils Percent Auto 3.5 % (0-4.4); Hematocrit 41.4 % (42.0-52.0); Hemoglobin 12.5 g/dL (14.0-18.0); Immature Granulocyte Absolute 0.06 K/mm3 (0.00-0.031); Immature Platelet Fraction Pct 2.2 % (0.9-11.2); Lymphocytes Absolute Auto 1.28 K/mm3 (0.9-3.2); Lymphocytes Percent Auto 21.5 % (18.3-44.2); Mean Corpuscular HGB Conc 30.2 g/dl (32-36); Mean Corpuscular Hemoglobin 28.3 pg (26-34); Mean Corpuscular Volume 93.7 fl (80-100); Mean Platelet Volume 9.3 fl (7.4-10.4); Monocytes Absolute Auto 0.5 K/mm3 (0.1-0.6); Monocytes Percent Auto 9.1 % (2.6-8.5); Neutrophils Absolute Auto 3.8 K/mm3 (1.3-6.7); Neutrophils Percent Auto 63.7 % (45.5-73.1); Platelet Count Result 158 k/mm3 (150-375); Red Blood Count 4.42 M/mm3 (4.6-6.20); Red Cell Distribution Width 16.8 % (11.5-14.5)
[2022-07-02 05:55] LABS: Alanine Aminotransferase 39 U/L (6-50); Albumin Level 2.6 g/dL (3.5-5.1); Alkaline Phosphatase 154 U/L (38-126); Anion Gap 2 mmol/L (8-16); Aspartate Amino Transferase 24 U/L (17-59); Bilirubin,Total 0.8 mg/dL (0.2-1.3); Blood Urea Nitrogen 14 mg/dL (9-20); Carbon Dioxide 28 mmol/L (22-30); Chloride 108 mmol/L (98-107); Estimated CRCL calculation 110 ml/min; Estimated Glomerular Filt Rate > 60; Glucose 95 mg/dL (65-110); Potassium 3.7 mmol/L (3.4-5.0); Sodium 138 mmol/L (137-145)
[2022-07-02 06:00] VITALS: BP 140/70; PULSE 79; RESP 20; TEMP 35.6; O2SAT 99
[2022-07-02 06:21] LABS: Procalcitonin 1.6 ng/mL
[2022-07-02 07:11] LABS: Platelet Estimate Adequate (Adequate)
[2022-07-02 07:12] LABS: Anisocytosis 1+ (NORMAL); Poikilocytosis 1+ (NORMAL)
[2022-07-02 07:13] LABS: Acanthocytes 1+ (NORMAL); Ovalocytes 2+ (NORMAL); Schistocytes None Seen (NORMAL)
[2022-07-02] MEDS: SACCHAROMYCES BOULARDII 250 MG CAPSULE PO ×2 (08:54→12:49)
[2022-07-02] MEDS: ASPIRIN 81 MG CHEWABLE TABLET PO (08:54)
[2022-07-02] MEDS: AMOXICILLIN/CLAVULANATE K 875-125 MG TAB 1 TABLET PO (08:54)
[2022-07-02] MEDS: guaiFENesin 12 HR 600 MG TABCR PO (08:54)
[2022-07-02] MEDS: LACTULOSE 20 GM/30 ML UDC 30 GM PO (08:55)
[2022-07-02] MEDS: DOCUSATE SODIUM 100 MG CAPSULE PO (08:55)
[2022-07-02] MEDS: FOLIC ACID 1 MG TABLET PO (08:55)
[2022-07-02] MEDS: FERROUS SULFATE 324 MG TABLET PO (08:55)
[2022-07-02] MEDS: FINASTERIDE 5 MG TABLET PO (08:55)
[2022-07-02] MEDS: TAMSULOSIN HCL 0.4 MG CAPSULE PO (08:55)
[2022-07-02] MEDS: APIXABAN 5 MG TABLET PO (08:55)
[2022-07-02] MEDS: ASCORBIC ACID 500 MG TABLET PO (08:55)
[2022-07-02] MEDS: GABAPENTIN 300 MG CAPSULE PO ×2 (08:55→12:49)
[2022-07-02] MEDS: traMADol HCL (*CRX) 50 MG TABLET PO ×2 (08:56→12:49)
[2022-07-02] MEDS: FLUTICASONE PROPIONATE 0.05% NA SPR 16 GM BTL (*BKC) 2 SPRAY NASAL (08:56)
[2022-07-02] MEDS: DICLOFENAC SODIUM 1% 100 GM GEL (*BKC) 1 APPLIC TOPICAL ×2 (08:56→12:49)
[2022-07-02 10:20] VITALS: PULSE 72; RESP 16
[2022-07-02] MEDS: IPRATROPIUM BR 0.02% INH SOLN 0.5 MG/2.5 ML VIAL INHALATION (10:20)
[2022-07-02] MEDS: ALBUTEROL SULFATE NEB 2.5 MG/3 ML INH INHALATION (10:20)
[2022-07-02 10:30] VITALS: PULSE 75; RESP 16
--- NOTE | 2022-07-02 12:19 | PM.DS ---
DS: Admitting Diagnosis Discharge Date 07/02/22 1237 Admitting Diagnosis Sepsis Acute UTI from indwelling urinary catheter Presumed aspiration pneumonia Rheumatoids arthritis, chronic Essential hypertension, chronic Chronic atrial fibrillation DS: Discharge Diagnosis Discharge Diagnosis (1) Sepsis: Code(s): A41.9 - Sepsis, unspecified organism Status: Acute Assessment and Plan: Patient noted to have SBP<90, HR>90, RR>20, >10% bandemia and UA concerning for UTI in presence of chronic indwelling robertson. Lactic acid within normal limits Baseline procalcitonin 18 Continue antibiotics for UTI and pneumonia coverage. 06/28/22 Blood cultures positive x2 bottles gram positive cocci, plus positive in 1 anaerobic bottle. Monitor hemodynamics, which are stable at this time. 06/30/22 Repeated blood cultures x2. Await initial blood cultures sensitivities 07/01/22 admissiion blood cultures with proteus and klebsiella growth sensitive to penicillins. Repeat blood cultures 06/30/22 preliminarily negative. Stop cefepime, vancomycin and flagyl. Start Augmentin BID to complete 7-10 day course. Repeat procalcitonin 1.6 (2) Acute UTI: Code(s): N39.0 - Urinary tract infection, site not specified Status: Acute Assessment and Plan: UA with 2+ blood, 3+ leukocytes, >75 WBC, trace bacteria, and no nitrates Patient has h/o prior UTIs 08/2021, 09/2021, and 11/2021 with E.coli, Klebsiella pneumoniae, and pseudomonas aeruginosa. Antibiotics changed for positive preliminary blood culture results on 06/29/22 to Vancomycin, Cefepime and Metronidazole IV. urine culture showed mixed blas, however, bacteremia organisms typically occurring with UTI 07/01/22 antibiotics changed to PO as above. Antibiotic day 4. (3) Aspiration pneumonia: Qualifiers: Aspiration pneumonia type: due to regurgitated food Laterality: bilateral Lung location: unspecified part of lung Qualified Code(s): J69.0 - Pneumonitis due to inhalation of food and vomit Code(s): J69.0 - Pneumonitis due to inhalation of food and vomit Status: Acute Assessment and Plan: Patient with noted cough while eating peaches on initial interview. He reports h/o dysphagia but is a poor historian. He has new O2 requirements 2L NC and no history of prior oxygen use, +bandemia, elevated procalcitonin, rhonchi and weak cough on physical exam. 06/28/22 CXR showed chronic opacities, however, it may not show new aspiration. Antibiotics changed for blood culture results on 06/29/22 Continue Vancomycin, Cefepime and Metronidazole IV. Consulted Speech therapy for bedside evaluation. 06/29/22 Modified barium swallow study showed laryngeal penetration. Honey thickened liquids with regular consistency fluids recommended. 06/30/22 physical exam shows improving lung sounds. Day 3 antibiotics- Zosyn 4.5g 06/28-06/29; cefepime +flagyl 06/29 to current. 07/01/22 Changed to PO antibiotics as above. (4) Weakness: Code(s): R53.1 - Weakness Status: Acute Assessment and Plan: Patient admitted for c/o generalized weakness. Likely secondary to sepsis and acute infection. CT head negative for acute findings. LUE weaker than RUE, however patient and detention staff report this is not new. TSH, B12 and folate within normal limits. Treat UTI and presumed aspiration pneumonitis PT/OT eval canceled. Patient is wheelchair bound at baseline. Activity level at baseline. (5) Rheumatoid arthritis: Onset Date: ~1999 Qualifiers: Rheumatoid arthritis location: multiple sites Rheumatoid factor presence: unspecified presence Qualified Code(s): M06.9 - Rheumatoid arthritis, unspecified Code(s): M06.9 - Rheumatoid arthritis, unspecified Status: Chronic Assessment and Plan: Chronic. Continue tramadol scheduled and PRN. Hold hydroxychloroquine and methotrexate while treating acute infection. (6) A-
[2022-07-02 13:00] LABS: EDCOVIDSCREEN Negative (Negative)
== END 2022-07-02 13:37 | DRG 698 ==
LOC: ANHED 08:13 → ANH2MED 11:46
PROVIDERS: Admitting Provider Family Medicine; Emergency Provider Emergency Medicine; Visit Provider Nurse Practitioner Family
DX: T83.511A Infection and inflammatory reaction due to indwelling urethral catheter, initial encounter (principal); A41.9 Sepsis, unspecified organism; J18.9 Pneumonia, unspecified organism; J69.0 Pneumonitis due to inhalation of food and vomit; C34.90 Malignant neoplasm of unspecified part of unspecified bronchus or lung; C79.51 Secondary malignant neoplasm of bone; I48.20 Chronic atrial fibrillation, unspecified; N39.0 Urinary tract infection, site not specified; R31.0 Gross hematuria; R33.9 Retention of urine, unspecified; R13.10 Dysphagia, unspecified; N31.9 Neuromuscular dysfunction of bladder, unspecified; M06.9 Rheumatoid arthritis, unspecified; R53.1 Weakness; I11.0 Hypertensive heart disease with heart failure; I50.9 Heart failure, unspecified; E78.00 Pure hypercholesterolemia, unspecified; Z20.822 Contact with and (suspected) exposure to COVID-19; Z23 Encounter for immunization; Z79.82 Long term (current) use of aspirin; Z79.899 Other long term (current) drug therapy; Z85.46 Personal history of malignant neoplasm of prostate; Z87.440 Personal history of urinary (tract) infections; Z87.891 Personal history of nicotine dependence; Y84.6 Urinary catheterization as the cause of abnormal reaction of the patient, or of later complication, without mention of misadventure at the time of the procedure
CPT/HCPCS: 36415; 70450; 71045; 74018; 74178; 80053; 80202; 81001; 82607; 82746; 83605; 84145; 84443; 85025; 85055; 85610; 87040; 87070; 87077; 87086; 87088; 87186; 87205; 87426; 87502; 90471; 90694; 92526; 92610; 92611; 93005; 94640; 94667; 96361; 96365; 99285; A9270; C9803; G0008; G0378; J0692; J0696; J2543; J3370; J7030; J7050; Q9967; U0003; U0005

== ENCOUNTER 2022-07-07 14:08 | Emergency (ER) | payer MEDICARE, SELFPAY ==
[2022-07-07 14:17] VITALS: BP 189/92; PULSE 120; RESP 30; TEMP 36.5; O2SAT 98
--- NOTE | 2022-07-07 15:15 | ED.GENADULT ---
HPI - General Adult General Chief complaint: Urogenital-Male Stated complaint: URINARY Time Seen by Provider: 07/07/22 14:28 Source: patient, EMS and RN notes reviewed Mode of arrival: EMS Limitations: no limitations History of Present Illness HPI narrative: 86 years old white male brought to the emergency room by ambulance from custodial because of pain at the penis and no urine output. Since his Dougherty catheter change last night. He denies any fever, chills, nausea, vomiting. Complaining of lower abdominal pain Related Data Home Medications Medication Instructions Recorded Confirmed aspirin 81 mg chewable tablet 81 mg PO DAILY 09/11/19 06/28/22 atorvastatin 40 mg tablet 40 mg PO HS 09/11/19 06/28/22 clonidine HCl 0.1 mg tablet 0.1 mg PO BID 09/11/19 06/28/22 finasteride 5 mg tablet 5 mg PO DAILY 09/11/19 06/28/22 fluticasone propionate 50 2 spray intranasal DAILY 09/11/19 06/28/22 mcg/actuation nasal spray,suspension furosemide 40 mg tablet 20 mg PO DAILY 09/11/19 06/28/22 glucosamine sulfate 500 mg tablet 500 mg PO BID 09/12/19 06/28/22 (Glucosamine) apixaban 5 mg tablet (Eliquis) 5 mg PO BID 11/27/20 06/28/22 acetaminophen 500 mg tablet 1,000 mg PO Q8H PRN pain or fever 02/22/21 06/28/22 (Tylenol Extra Strength) amlodipine 10 mg tablet 10 mg PO DAILY 02/22/21 06/28/22 Saccharomyces boulardii 250 mg 250 mg PO DAILY 06/28/22 06/28/22 capsule (Florastor) ascorbate calcium (vitamin C) 500 500 mg PO BID 06/28/22 06/28/22 mg tablet diclofenac sodium 1 % topical gel 2 g topical TID 06/28/22 06/28/22 (Voltaren Arthritis Pain) docusate sodium 100 mg tablet 100 mg PO BID 06/28/22 06/28/22 ergocalciferol (vitamin D2) 1,250 50,000 unit PO WEEKLY 06/28/22 06/28/22 mcg (50,000 unit) capsule ferrous sulfate 325 mg (65 mg 325 mg PO DAILY 06/28/22 06/28/22 iron) tablet,delayed release folic acid 1 mg tablet 1 mg PO DAILY 06/28/22 06/28/22 gabapentin 300 mg capsule 300 mg PO TID 06/28/22 06/28/22 guaifenesin 600 mg tablet, 600 mg PO BID 06/28/22 06/28/22 extended release 12 hr (Mucinex) hydroxychloroquine 200 mg tablet 200 mg PO BID 06/28/22 06/28/22 ipratropium 0.5 mg-albuterol 3 mg 3 ml inhalation TID PRN SOB 06/28/22 06/28/22 (2.5 mg base)/3 mL nebulization soln lactulose 20 gram/30 mL oral 45 ml PO DAILY 06/28/22 06/28/22 solution lidocaine 5 % topical ointment 1 applic topical BID 06/28/22 06/28/22 methotrexate sodium 2.5 mg tablet 15 mg PO WEEKLY 06/28/22 06/28/22 omeprazole 20 mg capsule,delayed 40 mg PO DAILY 06/28/22 06/28/22 release potassium chloride 20 mEq 20 meq PO DAILY 06/28/22 06/28/22 tablet,extended release(part/cryst) psyllium husk (with sugar) 2 gram 2 wafer PO DAILY 06/28/22 06/28/22 oral wafer (Metamucil Fiber Thin) senna-docusate sodium tablet 1 tablet PO BID PRN Constipation 06/28/22 06/28/22 tamsulosin 0.4 mg capsule 0.4 mg PO BID 06/28/22 06/28/22 vit A 300 mcg-C 200 mg-E 27 1 tablet PO QHS 06/28/22 06/28/22 mg-lutein 2 mg and minerals tablet (Healthy Eyes) vitamin E 600 unit capsule 400 unit PO BID 06/28/22 06/28/22 Allergies Allergy/AdvReac Type Severity Reaction Status Date / Time codeine Allergy Unknown Verified 06/28/22 12:45 Review of Systems Review of Systems: All systems reviewed & are unremarkable except as noted in HPI and below PMFSH Past Medical History Medical History A-fib Bronchitis CHF (congestive heart failure) Degenerative disc disease L4 and L5 Hypercholesterolemia Hypertension Lung cancer stage 4 with mets to left humerus Macular degeneration worse right eye Presence of indwelling urinary catheter Prostate cancer 1998, took radiation treatment 2002 Rheumatoid arthritis (~1999) Seasonal allergies Sleep apnea Uses CPAP Spinal stenosis Surgical History Surgical History H/O wrist surgery right wrist History of tay
[2022-07-07 15:31] VITALS: BP 142/86; PULSE 116; RESP 33
[2022-07-07] MEDS: LIDOCAINE HCL 2% GEL UROJET 10 ML PKG (15:40)
[2022-07-07 16:01] VITALS: BP 126/82; PULSE 93; RESP 19
[2022-07-07 17:01] VITALS: BP 126/76
[2022-07-07 17:31] VITALS: BP 149/94
== END 2022-07-07 18:50 ==
PROVIDERS: Emergency Provider Emergency Medicine; PCP Family Medicine
DX: Z46.6 Encounter for fitting and adjustment of urinary device (principal); R31.9 Hematuria, unspecified; I48.91 Unspecified atrial fibrillation; I50.9 Heart failure, unspecified; E78.00 Pure hypercholesterolemia, unspecified; I11.0 Hypertensive heart disease with heart failure; H35.30 Unspecified macular degeneration; M06.9 Rheumatoid arthritis, unspecified; G47.30 Sleep apnea, unspecified; Z85.118 Personal history of other malignant neoplasm of bronchus and lung; Z85.830 Personal history of malignant neoplasm of bone; Z85.46 Personal history of malignant neoplasm of prostate; Z92.3 Personal history of irradiation; Z79.01 Long term (current) use of anticoagulants; Z79.82 Long term (current) use of aspirin; Z87.891 Personal history of nicotine dependence
CPT/HCPCS: 51700; 99283